=== PATIENT | female | born 1995 | race Caucasian/White ===

== ENCOUNTER 2017-03-16 19:10 | Inpatient (IN) ==
[2017-03-16] MEDS ORDERED: COMPAZINE IV ONE (19:53)
[2017-03-16 20:06] LABS: BASO% 0.2 % (0.0-0.8); EOS# 0.01 X1000 (0.0-0.7); EOS% 0.1 % (0.0-10.0); HEMATOCRIT 40.7 % (37.0-47.0); HEMOGLOBIN 15.1 g/dL (12.0-16.0); IMM GRAN# 0.02 X1000 (0.0-0.04); IMM GRAN% 0.2 % (0.0-0.5); LYMPH# 1.95 X1000 (1.2-3.4); LYMPH% 21.8 % (20.5-51.1); MANUAL DIFF NEEDED? NO; MCH 30.8 PG (27-31); MCHC 37.1 g/dL (33-37); MCV 83.1 FL (81-99); MONO# 0.87 X1000 (0.11-0.59); MONO% 9.7 % (1.7-9.3); MPV 9.1 FL (7.4-10.4); PLT 489 X1000 (130-400)
[2017-03-16] MEDS ORDERED: POTASSIUM CHLORIDE 20% LIQUID PO ONE (21:15)
[2017-03-16 21:16] LABS: AGAP 14; ALBUMIN 4.1 g/dL (3.5-5.0); ALKALINE PHOSPHATASE 63 U/L (32-104); BUN 9 mg/dL (8-22); CALCIUM 9.3 mg/dL (8.8-10.2); CHLORIDE 74 mmol/L (98-107); COSMO 259; GOT 23 U/L (10-30); GPT 10 U/L (10-36); MAGNESIUM 2.2 mg/dL (1.5-2.7); SODIUM 129 mmol/L (136-145); TCO2 41 mmol/L (25-35); TOTAL BILIRUBIN 1.27 mg/dL (0.20-1.00); TOTAL PROTEIN 6.5 g/dL (6.3-8.3)
[2017-03-16] MEDS ORDERED: NS + KCL 40 MEQ 1,000 ML IV ONE (21:17)
[2017-03-16 21:18] LABS: POTASSIUM < 1.5 mmol/L (3.5-5.1)
--- NOTE | 2017-03-16 21:28 | PROVIDER DOCUMENTATION ---
This chart was entered by Tamara Shearer Scribe, acting as scribe for Carlton Barrios MD. HPI-Syncope/Dizziness - General Chief Complaint: Near Syncope Stated Complaint: weakness Time Seen by Provider: 03/16/17 19:40 Source: patient Allergies/Adverse Reactions: Patient Allergies Allergy/AdvReac Type Severity Reaction Status Date / Time Penicillins AdvReac HIVES Verified 03/16/17 19:51 - History of Present Illness-Syncope/Dizzy Nature of Presenting Problem: 21 Y/O F presents to ED with near syncope. Pt states weakness to general body began this afternoon and states her hands and feet curled up and she had chest tightness and SOB, throat closing, and rapid heart beat. Prior Episodes: reports: no prior history Onset/Duration: reports: this afternoon Timing: reports: still present Position/Activity at time of episode: reports: standing Symptoms prior to episode: reports: rapid heart beat, other (pi0grkbfj/ tingling , SOB, throat closing) Loss of Consciousness: no loss of consciousness Location of injury. (If syncope resulted in an injury.): reports: none Current Symptoms: reports: nausea Review of Systems - Adult - REVIEW OF SYSTEMS - ADULT Constitutional: denies: chills, fever Eyes: reports: no symptoms reported Ears, Nose, Mouth & Throat: reports: throat pain Cardiovascular: reports: irregular heart rate Respiratory: reports: shortness of breath. denies: cough Gastrointestinal: reports: nausea. denies: abdominal pain, diarrhea, vomiting Genitourinary: reports: no symptoms reported Musculoskeletal: reports: no symptoms reported Integumentary: reports: no symptoms reported Neurological: reports: no symptoms reported Psychiatric: reports: no symptoms reported Endocrine: reports: no symptoms reported Hematologic/Lymphatic: reports: no symptoms reported Allergic/Immunologic: reports: no symptoms reported All Other Systems: Reviewed and Negative Past History - Adult - PAST MEDICAL HISTORY-ADULT Review of Records: reports: Old Records Reviewed, Nursing Assessment Review, Medications Reviewed, Social history reviewed & non-contributory. - SOCIAL HISTORY Smoking: non-smoker Alcohol Use Frequency: every day Number of drinks per typical drinking period:: 5-10 drinks Physical Exam-General - PHYSICAL EXAM-ADULT Initial Vital Signs Reviewed: Yes - CONSTITUTIONAL General Appearance: appears well, alert, no apparent distress - EYES Eyes: PERRL/EOMI, pink conjunctivae - HEAD, EARS, NOSE, MOUTH & THROAT HENMT: normocephalic/atraumatic, moist mucous membranes, normal ENT inspection, TMs normal, pharynx normal - NECK Neck: non-tender, full range of motion, supple, normal inspection - RESPIRATORY Respiratory: chest non-tender, lungs clear, normal breath sounds - CARDIOVASCULAR Cardiovascular: normal peripheral pulses, regular rate, rhythm - GASTROINTESTINAL (ABDOMEN) Abdominal Exam: normal bowel sounds, non tender, soft - LYMPHATIC Lymphatic: no adenopathy - MUSCULOSKELETAL Back Exam: normal inspection, no CVA tenderness, no vertebral tenderness Extremity: normal range of motion, non-tender, normal gait, normal inspection - SKIN Integumentary: normal color, normal turgor, warm/dry - NEUROLOGIC 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, no motor/sensory deficits - PSYCHIATRIC Psych/Mental Status: normal mood/affect, normal thought content, normal thought process, oriented x 3 Progress - PLAN OF CARE/RESULTS Progress/Plan/Lab Results: Vital Signs - 8 hr 03/16/17 19:13 03/16/17 19:39 Temperature 98.1 F 98.1 F Pulse Rate 82 88 Respiratory Rate 16 21 Blood Pressure 84/46 98/49 O2 Sat by Pulse Oximetry 100 100 Laboratory Results - last 24 hr 03/16/17 03/16/17 19:30 19:30 WBC 8.96 RBC 4.90 Hgb 15.1 Hct 40.7 MCV 83.1 MCH 30.8 MCHC 37.1 H RDW Std Deviation 11.9 Plt Count 489 H MPV 9.1 Immature Gran % (Auto) 0.2 Neut % (Auto) 68.0 Lymph % (Auto) 21.8 Platte % (Auto) 9.7 H Eos % (Auto) 0.1 Baso % (Auto) 0.2 Immature Gran # (Auto) 0.02 Neut # (Auto) 6.09 Lymph # (Auto) 1.95 Platte # (Auto) 0.87 H Eos # (Auto) 0.01 Baso # (Auto) 0.02 Sodium 129 L Potassium < 1.5 L* Chloride 74 L Carbon Dioxide 41 H Anion Gap 14 BUN 9 Creatinine 0.9 BUN/Creatinine Ratio 10 Glucose 123 H Calculated Osmolality 259 Calcium 9.3 Magnesium 2.2 Total Bilirubin 1.27 H AST 23 ALT 10 Alkaline Phosphatase 63 Total Protein 6.5 Albumin 4.1 Globulin 2.4 Albumin/Globulin Ratio 1.7 Orders Category Date Time Status CBC WITH ELECTRONIC DIFF [HEME] Stat Lab 03/16/17 19:30 Completed CMP [COMPREHENSIVE METABOLIC PANEL] [CHEM] Stat Lab 03/16/17 19:30 Completed MAGNESIUM [CHEM] Stat Lab 03/16/17 19:30 Completed Ns + KCl 40 Meq 1,000 ml Med 03/16/17 21:17 Active IV 250 mls/hr Potassium Chloride 20% Liquid Med 03/16/17 21:15 Discontinued 40 meq PO NOW ONE Prochlorperazine [Compazine] Med 03/16/17 19:53 Discontinued 10 mg IV NOW ONE Result Diagrams: 03/16/17 19:30 03/16/17 19:30 - EKG 1 Time of EKG reading by physician:: 19:30 EKG Read and Signed by:: Carlton Barrios EKG Interpretation (*Must complete 3 of following elements*): Normal Rate: 78 Rhythm: NSR Comments: Abnormal ECG, Nonspecific intraventricular block Departure - Departure Time of Disposition Decision: 21:27 DIAGNOSIS: Hypokalemia Disposition: ADMITTED INPATIENT 09 Certified Medical Emergency: Emergent Condition: Fair - Critical Care Note This patient required my direct personal management.: No This chart was documented by the indicated scribe, (Tamara Shearer Scribe) and accurately reflects the services I performed and decisions made by me, Carlton Barrios MD, as attested by the provider's signature.
[2017-03-16] MEDS ORDERED: NS 500 ML IV ONE (22:49)
[2017-03-17] MEDS ORDERED: ZOFRAN IV PRN (00:47)
[2017-03-17] MEDS ORDERED: KLOR-CON PO ONE ×3 (00:56→16:23)
--- NOTE | 2017-03-17 05:50 | EKG Report ---
Test Performed on : 03/16/2017 7:30:20 PM Test Reason : No Order in Array Bridge Blood Pressure : / mmHG Vent. Rate : 078 BPM Atrial Rate : 078 BPM P-R Int : 156 ms QRS Dur : 126 ms QT Int : 490 ms P-R-T Axes : 073 078 068 degrees QTc Int : 558 ms Normal sinus rhythm. Nonspecific intraventricular block Abnormal ECG No previous ECGs available Unconfirmed Result
--- NOTE | 2017-03-17 06:04 | HISTORY AND PHYSICAL ---
PRIMARY CARE PHYSICIAN: None. CHIEF COMPLAINT: Muscle cramping, body feeling weak. HISTORY OF PRESENTING ILLNESS: A 21-year-old female without any significant past medical history, had presented to the emergency department, complained of having weakness and body cramps for several days. She states that she was taking some ccil-rtr-qzqwsjy diuretics to help with reducing some of her swelling she was having. She was evaluated in the ER, and she was noted to have a very low potassium. Due to her presenting symptoms, it was thought that she would need hospitalization for further management. At the time of my examination, she denied any headaches, visual changes, fevers, chills, chest pain, hemoptysis, or any weight changes. Just complained of body cramping and feeling weak. PAST MEDICAL HISTORY: None. PAST SURGICAL HISTORY: None. ALLERGIES: Penicillin. CURRENT MEDICATIONS: As listed in the MAR. SOCIAL HISTORY: She denies any history of smoking. Admits to alcohol use daily. Denies any illicit drug use. FAMILY HISTORY: No history of coronary artery disease. REVIEW OF SYSTEMS: Twelve point review of systems is as listed in the HPI. Other systems negative. PHYSICAL EXAMINATION: GENERAL: Cooperative, friendly female. She is resting comfortably now. VITAL SIGNS: Temperature 97.6 degrees, pulse 74, respirations 17, blood pressure 100/66. HEENT: Atraumatic, normocephalic. Extraocular movements intact. PERRLA. NECK: No masses. CHEST: Clear to auscultation. CARDIOVASCULAR: Regular rate and rhythm. ABDOMEN: Soft, nontender. Positive bowel sounds. EXTREMITIES: No edema. NEUROLOGIC: She is awake, alert, oriented x3. GENITOURINARY: No bladder distention. SKIN: Warm. LABORATORIES AND STUDIES: WBC 8.96, hemoglobin 15.1, hematocrit 40.7, platelets 489,000. Sodium 129, potassium 1.5, chloride 74, CO2 was 41, BUN is 9, creatinine 0.9, glucose is 123. ASSESSMENT: This is a 21-year-old female without any significant past medical history. Had presented to the emergency department with a complaint of weakness and body cramping for several days. She has apparently been taking some vshp-ywe-vocaykp diuretic agents. She was evaluated in the ER. She was found to be severely hypokalemic. She will need hospitalization for further management. 1. Severe hypokalemia. 2. Muscle weakness and cramps. PLAN: 1. We will admit patient to medical floor with telemetry. 2. We will continue with IV fluids, and also potassium replacement. 3. Give patient pain control as needed. 4. We will continue to follow and reassess. cc: Raimundo Kwan MD
[2017-03-17 07:02] LABS: MANUAL DIFF NEEDED? NO
[2017-03-17 07:52] LABS: AGAP 10; BUN 8 mg/dL (8-22); CALCIUM 8.6 mg/dL (8.8-10.2); CHLORIDE 89 mmol/L (98-107); COSMO 271; SODIUM 137 mmol/L (136-145); TCO2 38 mmol/L (25-35)
[2017-03-17 07:57] LABS: POTASSIUM 2.5 mmol/L (3.5-5.1)
[2017-03-17 08:15] LABS: BASO% 0.4 % (0.0-0.8); EOS# 0.05 X1000 (0.0-0.7); EOS% 0.9 % (0.0-10.0); HEMATOCRIT 32.3 % (37.0-47.0); HEMOGLOBIN 11.7 g/dL (12.0-16.0); LYMPH# 2.47 X1000 (1.2-3.4); LYMPH% 46.3 % (20.5-51.1); MCH 30.7 PG (27-31); MCHC 36.2 g/dL (33-37); MCV 84.8 FL (81-99); MONO# 0.52 X1000 (0.11-0.59); MONO% 9.7 % (1.7-9.3); MPV 9.6 FL (7.4-10.4); NEUT% 42.7 % (42.2-75.2); PLT 239 X1000 (130-400); RBC 3.81 XMIL (4.2-5.4)
--- NOTE | 2017-03-17 09:27 | EKG Report ---
Test Performed on : 03/17/2017 08:19:40 AM Test Reason : low K+ Blood Pressure : / mmHG Vent. Rate : 053 BPM Atrial Rate : 053 BPM P-R Int : 150 ms QRS Dur : 114 ms QT Int : 518 ms P-R-T Axes : 048 072 060 degrees QTc Int : 486 ms Sinus bradycardia. Prolonged QT Abnormal ECG When compared with ECG of 16-MAR-2017 19:30, QT has shortened Confirmed by Sam CALLAHAN, Salvador Mccormack ([id number]) on 03/18/2017 10:01:35 AM
[2017-03-17] MEDS: NS + KCL 40 MEQ 1,000 ML IV SCH ×2 (10:24→17:11)
--- NOTE | 2017-03-17 13:29 | PROGRESS NOTE ---
DATE: 03/17/2017 SUBJECTIVE: This patient states that she is feeling much better. She is not complaining today of lower extremity cramping or pain. She still feels sleepy. She denies nausea, vomiting, diarrhea, constipation. I had a conversation with this patient, and she states that she has been drinking every day and also she has been taking Diurex because she wants to be skinnier. Apparently she also was prescribed a couple weeks ago with potassium and magnesium pill that she has been taking on and off. She states that all these medications were bought and prescribed in [place], [place]. OBJECTIVE: Vital signs: temperature 98, pulse 57, respiratory rate 20, blood pressure 84/43, oxygen saturation 99 on room air. HEENT: Head normocephalic. No trauma . PERRLA. Neck: Supple. No JVD. No masses. Central trachea. Chest: Clear to auscultation. No wheezing or rales. Abdomen: Soft, nontender, nondistended. No hepatosplenomegaly. Extremities: No edema. No clubbing. No cyanosis. Neurological examination: The patient is alert and oriented x3. No focal neurological deficits. LABORATORY: WBC 5.3, hemoglobin 11.7, hematocrit 32.3, platelets 239, sodium 137, potassium 2.5, chloride 89, bicarbonate 38, BUN 8, creatinine 0.8, glucose 83, calcium 8.6. ASSESSMENT AND PLAN: 1. Severe hypokalemia, is getting better but still the potassium is low. She was admitted with less than 1.5 of potassium, and today the potassium in the serum is 2.5. We will replace this again. We have stopped all kind of medications that she was on before. 2. Hyponatremia, resolved. 3. Dehydration. This patient looks more hydrated today. 4. Hypotension. This patient states that her systolic blood pressure baseline is around 80s-90s, so apparently this blood pressure for her is normal. 5. Muscle weakness and cramps. She still feels a little bit weak, but she is not complaining about cramps. 6. Deep vein thrombosis prophylaxis. I will put this patient on Lovenox. cc: Jagdeep Redd MD
--- NOTE | 2017-03-17 14:09 | PROGRESS NOTE ---
DATE: 03/17/2017 ADDENDUM REPORT: I had a conversation with this patient's dad, and he states that this patient was recently discharged 1 week ago from the hospital in [place], secondary to eating disorder and electrolyte imbalance. Apparently, also she was hospitalized when she was 16 years old secondary to eating disorder. I explained to him that we do not have psychiatry on board to take care of this kind of patient, but I highly recommended to look for an outpatient psychiatry evaluation. DIAGNOSIS: So, I will add the following diagnosis: Eating disorder, I am not quite sure if this is anorexia nervosa or bulimia, this patient is not giving me too much information. cc: Jagdeep Redd MD
[2017-03-17 15:42] LABS: MAGNESIUM 2.1 mg/dL (1.5-2.7); POTASSIUM 2.5 mmol/L (3.5-5.1)
[2017-03-18] MEDS: NS + KCL 40 MEQ 1,000 ML IV SCH ×2 (01:08→09:08)
[2017-03-18 07:01] LABS: MANUAL DIFF NEEDED? NO
[2017-03-18 07:19] LABS: BASO% 0.8 % (0.0-0.8); EOS# 0.22 X1000 (0.0-0.7); EOS% 4.2 % (0.0-10.0); HEMATOCRIT 35.3 % (37.0-47.0); HEMOGLOBIN 12.4 g/dL (12.0-16.0); LYMPH# 2.95 X1000 (1.2-3.4); LYMPH% 56.8 % (20.5-51.1); MCH 30.8 PG (27-31); MCHC 35.1 g/dL (33-37); MCV 87.8 FL (81-99); MONO# 0.31 X1000 (0.11-0.59); MPV 9.2 FL (7.4-10.4); NEUT% 32.2 % (42.2-75.2); PLT 257 X1000 (130-400); RBC 4.02 XMIL (4.2-5.4)
[2017-03-18 07:36] LABS: AGAP 11; BUN 4 mg/dL (8-22); CALCIUM 8.8 mg/dL (8.8-10.2); CHLORIDE 99 mmol/L (98-107); COSMO 276; MAGNESIUM 1.9 mg/dL (1.5-2.7); SODIUM 140 mmol/L (136-145); TCO2 30 mmol/L (25-35)
[2017-03-18] MEDS ORDERED: LOVENOX SUBQ SCH (09:00)
[2017-03-18] MEDS ORDERED: KLOR-CON PO ONE (09:28)
[2017-03-18 14:23] VITALS: BP 87/52
[2017-03-18 15:34] LABS: HEMOGLOBIN 12.2 g/dL (12.0-16.0); MCH 30.7 PG (27-31); MCHC 34.9 g/dL (33-37); MCV 87.9 FL (81-99); MPV 8.8 FL (7.4-10.4); RBC 3.98 XMIL (4.2-5.4)
--- NOTE | 2017-03-18 15:40 | DISCHARGE SUMMARY ---
ADMISSION DATE: 03/16/2017 DISCHARGE DATE: 03/18/2017 DISCHARGE DIAGNOSES: 1. Severe hypokalemia, potassium less than 1.5 on admit, greater than 3.0 on discharge. 2. Hyponatremia, 129 admit, 140 discharge. 3. Mildly elevated bilirubin. 4. Dehydration, resolved. 5. Hypotension. Patient notes that her blood pressures are normally in the 80s to 90s at home. She is having 0 symptoms of this. She is able to ambulate the jenkins. She is having no lightheadedness falling, no dizziness, no chest pain. 6. Muscle cramps likely secondary to her hypokalemia has resolved. 7. Apparent eating disorder per family. CONSULTATIONS: None. PROCEDURES: None. BRIEF HOSPITAL COURSE: Patient 21-year-old female was admitted as noted on the HPI. Treated in usual fashion. Placed on high doses of potassium. She had a very good steady improvement in her potassium. On discharge it was essentially back to normal greater than 3.0. She was able to ambulate the jenkins without any difficulty. She was able to eat breakfast and lunch with no changes. The patient was asking to go home. DISPOSITION: Patient will be discharged home. She is currently on home medications for her potassium as well as her magnesium. These have been restarted. Patient's primary care physician is in [place]. She is here only visiting her father. TIME SPENT: Thirty-five minutes was spent in discharge planning and instructions. DISCHARGE INSTRUCTIONS: Discussed with patient restart her home medications. Discussed with her that she needs to follow up with her primary physician when she arrives back home. Patient will need to continue to eat a regular diet and not avoid salt or potassium containing foods. Patient states that she understands. cc: Moris Tovar MD
[2017-03-18 16:04] LABS: AGAP 9; ALBUMIN 3.5 g/dL (3.5-5.0); ALKALINE PHOSPHATASE 54 U/L (32-104); BUN 4 mg/dL (8-22); CALCIUM 8.6 mg/dL (8.8-10.2); CHLORIDE 101 mmol/L (98-107); COSMO 277; GOT 27 U/L (10-30); GPT 13 U/L (10-36); POTASSIUM 3.3 mmol/L (3.5-5.1); SODIUM 140 mmol/L (136-145); TCO2 30 mmol/L (25-35); TOTAL PROTEIN 5.9 g/dL (6.3-8.3)
[2017-03-18] MEDS ORDERED: BUSPAR PO SCH (21:00)
[2017-03-19] MEDS ORDERED: PATIENT'S OWN MED PO SCH (09:00)
[2017-03-19] MEDS ORDERED: MAGNESIUM GLUCONATE PO SCH (09:00)
[2017-03-19] MEDS ORDERED: MICRO-K PO SCH (09:00)
== END 2017-03-18 17:08 | disposition home or self-care (01) ==
LOC: ED 19:10 → 3N 21:45 → SUATTDRO 21:45
PROVIDERS: ATTEND Family Medicine

== ENCOUNTER 2017-04-06 09:44 | Inpatient (IN) ==
--- NOTE | 2017-04-06 10:11 | PROVIDER DOCUMENTATION ---
HPI-General Adult - General Chief Complaint: Abnormal Lab[s] Stated Complaint: DIARRHEA,LOW POTASSIUM,PALPITATIONS Time Seen by Provider: 04/06/17 09:57 Source: patient Allergies/Adverse Reactions: Patient Allergies Allergy/AdvReac Type Severity Reaction Status Date / Time Penicillins AdvReac HIVES Verified 04/06/17 10:29 Home Medications: Home Medication List Medication Instructions Recorded Confirmed Last Taken Type NK [No Home Medications] 04/06/17 04/06/17 Unknown History - History of Present Illness -Gen Adult Nature of Presenting Problems: 21 yo female presents to the emergency room with a chief complaint of nausea and diarrhea x one month. Reports 4th visit to the emergency room with same symptoms. Reports low potassium with each visit. Reports seen at a local and had blood drawn and did not want to wait on the results. Reports took last potassium pill today. Gives Hx of anxiety with palpitations. reports mild burning with urination. Denies fever, chills, chest pain, shortness of breath or abdominal pain. Onset/Duration: reports: other (1 month) Timing: reports: still present Associated Symptoms: reports: anxiety, nausea. denies: fever/chills, shortness of breath Similar Symptoms Previously?: Yes Recently seen or treated by another doctor?: Yes Review of Systems - Adult - REVIEW OF SYSTEMS - ADULT Constitutional: denies: chills, fever Eyes: reports: no symptoms reported Ears, Nose, Mouth & Throat: reports: no symptoms reported Cardiovascular: reports: no symptoms reported Respiratory: reports: no symptoms reported Gastrointestinal: reports: diarrhea, nausea Genitourinary: reports: no symptoms reported Musculoskeletal: reports: no symptoms reported Integumentary: reports: no symptoms reported Neurological: reports: no symptoms reported Psychiatric: reports: no symptoms reported Endocrine: reports: no symptoms reported Hematologic/Lymphatic: reports: no symptoms reported Allergic/Immunologic: reports: no symptoms reported All Other Systems: Reviewed and Negative Past History - Adult - PAST MEDICAL HISTORY-ADULT Review of Records: reports: Nursing Assessment Review, Medications Reviewed Major Childhood Illnesses: reports: denies history Cardiovascular: reports: denies history Respiratory: reports: asthma Gastrointestinal: reports: denies history Obstetrical/Gynecological: reports: denies history Genitourinary: reports: denies history Musculoskeletal: reports: denies history Neurological: reports: denies history Psychiatric: reports: anxiety, other (eating disorder) Endocrine/Immune: reports: denies history Other Conditions: reports: denies history - IMMUNIZATION STATUS Childhood Immunizations: See Nurse Assessment Flu Vaccine: See Nurse Assessment - FAMILY HISTORY Family History: reviewed, not pertinent - SOCIAL HISTORY Smoking: denies Substance Use: alcohol Alcohol Use Frequency: occasionally Physical Exam-General - PHYSICAL EXAM-ADULT Initial Vital Signs Reviewed: Yes - CONSTITUTIONAL General Appearance: appears well, alert, no apparent distress - EYES Eyes: PERRL/EOMI, pink conjunctivae - HEAD, EARS, NOSE, MOUTH & THROAT HENMT: normocephalic/atraumatic, moist mucous membranes, normal ENT inspection, TMs normal, pharynx normal - NECK Neck: full range of motion, supple - RESPIRATORY Respiratory: lungs clear, normal breath sounds - CARDIOVASCULAR Cardiovascular: normal peripheral pulses, regular rate, rhythm - GASTROINTESTINAL (ABDOMEN) Abdominal Exam: normal bowel sounds, non tender, soft. negative: tenderness - MUSCULOSKELETAL Back Exam: normal inspection, no vertebral tenderness Extremity: normal range of motion, normal gait, normal capillary refill - SKIN Integumentary: normal color, normal turgor, warm/dry - NEUROLOGIC Neurologic: grossly normal, no motor/sensory deficits - PSYCHIATRIC Psych/Mental Status: normal mood/affect, oriented x 3 Progress - PLAN OF CARE/RESULTS Progress/Plan/Lab Results: Vital Signs - 8 hr 04/06/17 09:51 Temperature 98.3 F Pulse Rate 58 L Respiratory Rate 16 Blood Pressure 117/72 O2 Sat by Pulse Oximetry 100 Orders Category Date Time Status ED: Urine Bedside ORDERED Care 04/06/17 10:06 Ordered CBC WITH DIFF [HEME] Stat Lab 04/06/17 10:05 Uncollected CMP [COMPREHENSIVE METABOLIC PANEL] [CHEM] Stat Lab 04/06/17 10:05 Uncollected URINALYSIS [URINALYSIS] Stat Lab 04/06/17 10:05 Uncollected [id number] Discussed patient's labs with Dr. Garzon, verbalized orders for IV NACL with 20 meq Potassium and Potassium [address] Garzon verbalized to admit patient to hospital for evaluation of low potassium. Result Diagrams: 04/06/17 10:18 04/06/17 10:18 - CONSULTS/PCP/HOSPITALIST Notification #1 *Consult/PCP/Hospitalist*: Sukumar Time Discussed: 11:15 Consult Disposition: other (awaiting Hospitalist to return call) #2 Consult: Quensa Time Discussed: 12:15 Consult Disposition: Will see in ED, Admit Departure - Departure Time of Disposition Decision: 12:05 DIAGNOSIS: Hypokalemia UTI (urinary tract infection) Qualifiers: Encounter type: initial encounter Disposition: ADMITTED INPATIENT 09 Certified Medical Emergency: Emergent Condition: Stable - Critical Care Note This patient required my direct & personal management of CC.: No Attestation - Physician/ LUCITA Attestation Patient care was provided by Advanced Practice Provider:: Yes Advanced Practice Provider:: Prabha Mcdonald Advanced Practice Provider documentation review:: The Mid-level provider documentation, treatment plan and medical decision making was reviewed by the physician who agrees with all treatment and medical decision making by the MLP. The physician spent face to face time with patient:: Yes Advanced Practice Provider documentation review:: The physician spent face to face time with this patient and agrees with all MLP documentation, treatment, and medical decision making by the MLP. See provider notes for further information.
[2017-04-06 10:26] LABS: MANUAL DIFF NEEDED? NO; URINE MICRO REVIEW NEEDED? NO; URINE SOURCE CLEAN CATCH
[2017-04-06 10:38] LABS: BASO% 0.8 % (0.0-0.8); EOS# 0.03 X1000 (0.0-0.7); EOS% 0.8 % (0.0-10.0); HEMATOCRIT 44.8 % (37.0-47.0); HEMOGLOBIN 15.8 g/dL (12.0-16.0); LYMPH# 1.33 X1000 (1.2-3.4); LYMPH% 35.5 % (20.5-51.1); MCH 30.3 PG (27-31); MCHC 35.3 g/dL (33-37); MCV 85.8 FL (81-99); MONO# 0.43 X1000 (0.11-0.59); MONO% 11.5 % (1.7-9.3); MPV 8.6 FL (7.4-10.4); NEUT% 51.4 % (42.2-75.2); PLT 345 X1000 (130-400); RBC 5.22 XMIL (4.2-5.4)
[2017-04-06 10:39] LABS: UR EPITHELIAL CELLS >10 /HPF (<10); URINE BACTERIA 1+ /HPF; URINE RBC <10 /HPF (<10)
[2017-04-06 10:51] LABS: BILIRUBIN URINE MODERATE (NEGATIVE); BLOOD URINE NEGATIVE (NEGATIVE); COLOR YELLOW; GLUCOSE URINE NEGATIVE (NEGATIVE); LEUKOCYTES URINE NEGATIVE (NEGATIVE); NITRITE URINE POSITIVE (NEGATIVE); PH URINE 8.5; PROTEIN URINE 200 mg/dL (NEGATIVE); SP GRAVITY URINE 1.027; TURBIDITY URINE HAZY (CLEAR); UROBILINOGEN URINE 6 mg/dL (NORMAL)
[2017-04-06 10:53] LABS: URINE WBC <10 /HPF (<10)
[2017-04-06 10:58] LABS: AGAP 15; ALBUMIN 4.6 g/dL (3.5-5.0); ALKALINE PHOSPHATASE 79 U/L (32-104); BUN 7 mg/dL (8-22); CALCIUM 9.7 mg/dL (8.8-10.2); CHLORIDE 79 mmol/L (98-107); COSMO 258; GOT 33 U/L (10-30); GPT 16 U/L (10-36); POTASSIUM 2.1 mmol/L (3.5-5.1); SODIUM 130 mmol/L (136-145); TCO2 36 mmol/L (25-35); TOTAL BILIRUBIN 1.03 mg/dL (0.20-1.00); TOTAL PROTEIN 7.4 g/dL (6.3-8.3)
[2017-04-06] MEDS ORDERED: NS 1,000 ML IV ONE (11:07)
[2017-04-06] MEDS ORDERED: NS + KCL 20 MEQ 1,000 ML IV SCH ×2 (11:09→19:17)
[2017-04-06] MEDS ORDERED: KLOR-CON PO ONE (11:29)
[2017-04-06] MEDS ORDERED: MAGNESIUM SULFATE 2 GM/S.W.I. 2 GM/50 ML IVPB IV ONE (12:03)
[2017-04-06 12:34] LABS: UR CHLORIDE 23 mmoll; UR SODIUM 14 mmoll
[2017-04-06] MEDS ORDERED: XANAX PO ONE (13:09)
--- NOTE | 2017-04-06 14:09 | HISTORY AND PHYSICAL ---
CHIEF COMPLAINT: Persistent diarrhea, abdominal cramping and back spasms. HISTORY OF PRESENT ILLNESS: Mrs. Lynn is a 21-year-old, female, who was recently discharged from our service at [facility] on 03/18/2017. At that time, she was diagnosed with hypokalemia, hyponatremia and muscle cramps. There is also a question of eating disorder per her family although they are not here today. This is on previous H and P. She comes today with reports of 3-4 bowel movements a day. She reports liquid stool and this is associated with abdominal pain and cramping. She has also had a few episodes of vomiting and she also has dysuria. She denies any fevers or chills. The patient also reports some lower back pain. She denies any abuse of laxatives or diuretics, in fact she states she has taken some Imodium for diarrhea relief. When she got to the ER today she was noted to be profoundly hypokalemic with hyponatremia and hypochloremia with associated contraction alkalosis. Urinalysis did reveal positive nitrites, moderate bilirubin and 1+ bacteria but there was also greater than 10 epi cells. Her vital signs are stable. She is currently receiving electrolyte repletion and IV fluids and she is going to be admitted for further treatment and evaluation. PAST MEDICAL HISTORY: 1. Anxiety. 2. Question of eating disorder. SURGICAL HISTORY: None. SOCIAL HISTORY: Patient reports drinking 3 beers a day. She denies any drug use. She does not smoke. She is currently living with her father here in [place] although she has recently come from [place]. FAMILY HISTORY: Noncontributory. ALLERGIES: To penicillin. MEDICATIONS: The patient is reportedly is supposed to be on BuSpar but she does like it for anxiety and she also reports being on Xanax 0.25 mg as needed for anxiety but has not had this medication recently. REVIEW OF SYSTEMS: Fourteen-point review of systems obtained and found to be negative with the exception of the HPI. PHYSICAL EXAMINATION: VITAL SIGNS: Blood pressure is 92/61, heart rate 59, respiratory rate 18, O2 saturation 98% on room air. Temperature is 98.7 degrees. GENERAL: This is an underweight bordering on malnourished appearing 21-year-old, female, lying in the hospital bed in no acute distress. NEUROLOGIC: She is awake, alert, oriented. She follows commands without focal deficits. HEENT: Head atraumatic and normocephalic. Her pupils are equal, round, and reactive to light. Oral mucosa is moist. Trachea is midline. No JVD or carotid bruits. CHEST: Clear to auscultation bilaterally. CV: Regular rate and rhythm. S1, S2. There were no murmurs, gallops, clicks or rubs. GI: Is soft, nondistended. She does have some epigastric tenderness to palpation. Bowel sounds are active. EXTREMITIES: Without edema, clubbing or cyanosis. Pulses are palpable bilaterally. DIAGNOSTIC DATA: WBC 3.75, hemoglobin 15.8, hematocrit 44.8, platelet count 345,000. Sodium 130, potassium 2.1, chloride 79, CO2 36, anion gap 15. BUN 7, creatinine 0.8, glucose 90. Total bilirubin 1.03. AST 33, albumin is 4.6. TSH 0.96, free T4 1.47. UA shows urinary tract infection and test is pending. ASSESSMENT/PLAN: 1. Profound electrolyte abnormalities including hypokalemia, hypochloremia and hyponatremia: This is all secondary to diarrhea. We are replacing these electrolytes and we will recheck another round of electrolytes at 4 today. We will also check a current phosphorus level. For hyponatremia based on urine electrolytes, it is hypovolemic and we are continuing with isotonic fluid administration. 2. Persistent diarrhea: Stool studies have been ordered and we are going to check a CT of the abdomen and pelvis. 3. Elevated liver function tests: CT of the abdomen and pelvis have been ordered and we are also going to check a hepatitis profile. 4. Severe protein calorie malnutrition: Patient is underweight. BMI is 18. We will continue with regular diet. We also need to ascertain if she truly does have an eating disorder or is abusing laxatives and/or diuretics. She may need a behavioral health consult. 5. DVT prophylaxis. Patient is ambulatory. 6. UTI. We will start Rocephin. Further recommendations to follow. Dictated by DO Tovar for Tristan Martin MD cc: DO Tovar MD
--- NOTE | 2017-04-06 15:27 | Diag Imaging Result Doc PS360 ---
ABDOMEN/PELVIS W/CONTRAST - 04/06/2017 INDICATION: persistent diarrhea, abd pain/cramping COMPARISON: None FINDINGS: The lung bases are clear and the heart size is normal. There are numerous gallstones in the gallbladder. No gallbladder distention, wall thickening or free fluid. The liver, pancreas, spleen, adrenals, and kidneys are normal. No bowel obstruction or inflammation. Urinary bladder, uterus, and rectum are normal. Bony structures are intact. IMPRESSION: Gallstones in the gallbladder. Otherwise no acute disease. Electronically signed by Roland Harris 04/06/2017 3:25 PM
--- NOTE | 2017-04-06 17:15 | ED EKG INTERP ---
This chart was entered by Anjelica Casarez Scribe, acting as scribe for Prabha Mcdonald CRNP. EKG Interpretation - EKG Time of EKG reading by physician:: 10:44 EKG Read and Signed by:: Soha Garzon EKG Interpretation (*Must complete 3 of following elements*): Normal (sinus bradycardia, but otherwise normal) Rate: 49 Rhythm: sinus bradycardia [place]: normal QRS: normal ND Interval: normal ST Wave: normal <Prabha Mcdonald - Last Filed: 04/06/17 11:07> - EKG Time of EKG reading by physician:: 10:44 <Soha Garzon - Last Filed: 04/06/17 16:52> This chart was documented by the indicated scribe, (Anjelica Casarez Scribe) and accurately reflects the services I performed and decisions made by Harry valero Jacqueline Kay, CRNP, as attested by the provider's signature.
[2017-04-06 17:42] LABS: AGAP 17; BUN 5 mg/dL (8-22); CALCIUM 9.2 mg/dL (8.8-10.2); CHLORIDE 84 mmol/L (98-107); COSMO 263; POTASSIUM 3.1 mmol/L (3.5-5.1); SODIUM 133 mmol/L (136-145); TCO2 32 mmol/L (25-35)
[2017-04-06 20:45] LABS: UR AMPHETAMINES QUAL NONE DETECTED (NONE DETECT)
[2017-04-06 20:46] LABS: UR BARBITUATES QUAL NONE DETECTED (NONE DETECT); UR BENZODIAZEPIN QUAL PRESUMPTIVE POSITIVE (NONE DETECT); UR CANNABINOIDS QUAL NONE DETECTED (NONE DETECT); UR COCAINE QUAL NONE DETECTED (NONE DETECT); UR METHADONE QUAL NONE DETECTED (NONE DETECT); UR OPIATES QUAL NONE DETECTED (NONE DETECT); UR OXYCODONE QUAL NONE DETECTED (NONE DETECT); UR PCP QUAL NONE DETECTED (NONE DETECT)
[2017-04-06] MEDS: NS + KCL 20 MEQ 1,000 ML IV SCH (20:50)
--- NOTE | 2017-04-07 05:14 | EKG Report ---
Test Performed on : 04/07/2017 02:33:39 AM Test Reason : Bradycardia Blood Pressure : / mmHG Vent. Rate : 042 BPM Atrial Rate : 042 BPM P-R Int : 152 ms QRS Dur : 098 ms QT Int : 516 ms P-R-T Axes : 072 076 061 degrees QTc Int : 430 ms Marked sinus bradycardia. Junctional ST depression, probably abnormal Abnormal ECG When compared with ECG of 24-MAR-2017 18:43, Vent. rate has decreased BY 23 BPM QT has shortened Confirmed by Aaron CALLAHAN, Chon Mccormack ([id number]) on 04/07/2017 3:30:13 PM
[2017-04-07 05:21] LABS: HEMATOCRIT 35.6 % (37.0-47.0); HEMOGLOBIN 12.5 g/dL (12.0-16.0); MCH 31.2 PG (27-31); MCHC 35.1 g/dL (33-37); MCV 88.8 FL (81-99); MPV 8.7 FL (7.4-10.4); RBC 4.01 XMIL (4.2-5.4)
[2017-04-07 05:52] LABS: POTASSIUM 2.5 mmol/L (3.5-5.1)
[2017-04-07 05:53] LABS: AGAP 12; BUN 6 mg/dL (8-22); CALCIUM 8.5 mg/dL (8.8-10.2); CHLORIDE 93 mmol/L (98-107); COSMO 274; SODIUM 139 mmol/L (136-145); TCO2 34 mmol/L (25-35)
[2017-04-07] MEDS: NS + KCL 20 MEQ 1,000 ML IV SCH (06:43)
[2017-04-07] MEDS ORDERED: POTASSIUM CHLORIDE 20 MEQ/SWI 20 MEQ/100 ML IVPB IV SCH (07:30)
[2017-04-07] MEDS ORDERED: KLOR-CON PO ONE ×2 (07:32→10:39)
--- NOTE | 2017-04-07 09:00 | Diag Imaging Result Doc PS360 ---
US ABDOMEN-COMPLETE - 04/07/2017 INDICATION: gallstones COMPARISON: CT abdomen pelvis with contrast yesterday FINDINGS: The gallbladder is replaced with a wall echo shadow complex compatible with numerous shadowing gallstones. No inflammation or wall thickening. The liver, spleen, pancreas, and both kidneys are normal. Common bile duct measures 3 mm. The aorta, IVC, and main portal vein are patent. IMPRESSION: Gallbladder packed with numerous gallstones. Electronically signed by Roland Harris 04/07/2017 8:58 AM
[2017-04-07 10:38] LABS: HIV ANTIBODY SCREEN SEE COMMENTS
[2017-04-07 10:50] LABS: HEPATITIS PROFILE ACUTE SEE COMMENTS
[2017-04-07 12:17] VITALS: BP 107/74
[2017-04-07 12:48] LABS: AGAP 13; BUN 5 mg/dL (8-22); CALCIUM 8.9 mg/dL (8.8-10.2); CHLORIDE 95 mmol/L (98-107); COSMO 270; POTASSIUM 2.8 mmol/L (3.5-5.1); SODIUM 137 mmol/L (136-145); TCO2 29 mmol/L (25-35)
--- NOTE | 2017-04-07 15:48 | DISCHARGE SUMMARY ---
ADMISSION DATE: 04/06/2017 DISCHARGE DATE: 04/07/2017 HISTORY OF PRESENT ILLNESS: Vickie Lynn is a 21-year-old who was brought in. She had abdominal cramping, back spasm, and persistent diarrhea, recently discharged from service on 03/18/2017. Diagnosed with hypokalemia, hyponatremia, muscle cramps, question of whether she has an eating disorder. Family was not there during admission. Previous H and P reported 3-4 bowel movements a day. She denies any laxative use or over use. States that, in her mind, she is eating well and doing well. She had a few episodes of vomiting, also some dysuria. Denies fever or chills. She reports she has had some lower back pain. Denies any use of laxatives or diuretics. She has taken some Imodium before. She has lost some weight in the last couple of months. PAST MEDICAL HISTORY: Anxiety. Questionable eating disorder. She reports drinking 3 beers a day. HOSPITAL COURSE: She really was admitted for hypokalemia, given potassium IV, n.p.o., and brought it up a little bit, so I feel like she can go home. She is requesting to go home. Encouraged her to follow up with her primary care. Encouraged her to get good p.o. nutrition and I will give her some supplemental potassium to take at home. She did have gallstones in the gallbladder on the abdomen and pelvic CT, but really everything else was unremarkable. On looking at her laboratories, potassium was 3.1 and has gone down to 2.5. She has been given some fluids. Sodium went from 133 to 139, magnesium from 3.0 to 2.3, so doing well in that. Feel she can go home. Discharged on 04/07/2017, to follow up with her primary care. DISCHARGE MEDICATIONS: We will give her some Klor-Con 40 mEq and have her take it twice a day for the next week, and then go down to once a day after that. Follow up with primary care. cc: Fernandez Pacheco MD
[2017-04-07 15:49] LABS: AGAP 16; BUN 6 mg/dL (8-22); CALCIUM 9.6 mg/dL (8.8-10.2); CHLORIDE 91 mmol/L (98-107); COSMO 270; MAGNESIUM 2.1 mg/dL (1.5-2.7); POTASSIUM 3.2 mmol/L (3.5-5.1); SODIUM 137 mmol/L (136-145); TCO2 30 mmol/L (25-35)
== END 2017-04-07 16:49 | disposition home or self-care (01) ==
LOC: ED 09:44 → SUATTDRO 13:36 → 4N 13:36
PROVIDERS: ATTEND Emergency Medicine

== ENCOUNTER 2017-04-30 15:19 | Inpatient (IN) ==
[2017-04-30 15:58] LABS: MANUAL DIFF NEEDED? NO
[2017-04-30 16:01] LABS: BASO% 0.7 % (0.0-0.8); EOS# 0.02 X1000 (0.0-0.7); EOS% 0.4 % (0.0-10.0); HEMATOCRIT 42.7 % (37.0-47.0); HEMOGLOBIN 15.6 g/dL (12.0-16.0); LYMPH# 1.44 X1000 (1.2-3.4); LYMPH% 25.5 % (20.5-51.1); MCHC 36.5 g/dL (33-37); MCV 84.7 FL (81-99); MONO% 8.9 % (1.7-9.3); MPV 8.8 FL (7.4-10.4); NEUT% 64.5 % (42.2-75.2); PLT 382 X1000 (130-400); RBC 5.04 XMIL (4.2-5.4)
[2017-04-30 16:43] LABS: AGAP 10; ALBUMIN 4.2 g/dL (3.5-5.0); ALKALINE PHOSPHATASE 79 U/L (32-104); BUN 4 mg/dL (8-22); CALCIUM 9.4 mg/dL (8.8-10.2); CHLORIDE 79 mmol/L (98-107); COSMO 263; GOT 43 U/L (10-30); GPT 30 U/L (10-36); POTASSIUM 1.6 mmol/L (3.5-5.1); SODIUM 132 mmol/L (136-145); TCO2 43 mmol/L (25-35); TOTAL BILIRUBIN 0.98 mg/dL (0.20-1.00)
[2017-04-30] MEDS ORDERED: KLOR-CON PO ONE ×2 (16:51→21:16)
[2017-04-30] MEDS ORDERED: D5 1/2 NS + KCL 20 MEQ 1,000 ML IV SCH (16:53)
[2017-04-30] MEDS ORDERED: D5 1/2 NS + KCL 20 MEQ 1,000 ML ONE (17:05)
[2017-04-30] MEDS ORDERED: ATIVAN IV ONE (17:20)
[2017-04-30 17:27] LABS: URINE MICRO REVIEW NEEDED? NO; URINE SOURCE CLEAN CATCH
[2017-04-30 17:37] LABS: BILIRUBIN URINE NEGATIVE (NEGATIVE); BLOOD URINE NEGATIVE (NEGATIVE); COLOR YELLOW; GLUCOSE URINE NEGATIVE (NEGATIVE); LEUKOCYTES URINE TRACE (NEGATIVE); NITRITE URINE NEGATIVE (NEGATIVE); PH URINE 8.5; PROTEIN URINE 70 mg/dL (NEGATIVE); SP GRAVITY URINE 1.019; TURBIDITY URINE CLEAR (CLEAR); UROBILINOGEN URINE 2 mg/dL (NORMAL)
[2017-04-30 17:38] LABS: UR EPITHELIAL CELLS <10 /HPF (<10); URINE BACTERIA NEGATIVE /HPF; URINE CULTURE NEEDED? YES; URINE RBC <10 /HPF (<10)
[2017-04-30] MEDS ORDERED: POTASSIUM CHLORIDE 60 MEQ in NS 500 ML IV SCH (18:00)
--- NOTE | 2017-04-30 18:04 | PROVIDER DOCUMENTATION ---
This chart was entered by Jeanine Coffey Scribe, acting as scribe for Danilo Dye PA. HPI-General Adult - General Chief Complaint: Generalized Pain Stated Complaint: MUSCLE SPASMS Time Seen by Provider: 04/30/17 15:42 Source: patient Allergies/Adverse Reactions: Patient Allergies Allergy/AdvReac Type Severity Reaction Status Date / Time Penicillins AdvReac HIVES Verified 04/30/17 15:48 Home Medications: Home Medication List Medication Instructions Recorded Confirmed Last Taken Type Potassium Chloride [Klor-Con M20] 20 meq PO BID #60 tab.er.prt 04/07/17 Unknown Rx - History of Present Illness -Gen Adult Nature of Presenting Problems: 21 yo F presents to the ER with complaint of muscle spasms in her calves and back, states she has a history of low potassium when she had these symptoms. Pt has IBS and frequent diarrhea, states she takes oral potassium but majority of the time she sees the potassium pill in tact in her stool. Pt states she has a history of eating disorder, which lead to her IBS, this past year she has lost 10-15 from the IBS. States she is not currently under the care of a GI doctor. Associated Symptoms: reports: diarrhea, muscle aches (spasms). denies: weakness Review of Systems - Adult - REVIEW OF SYSTEMS - ADULT Constitutional: denies: chills, fever Eyes: reports: no symptoms reported Ears, Nose, Mouth & Throat: reports: no symptoms reported Cardiovascular: reports: no symptoms reported Respiratory: reports: no symptoms reported Gastrointestinal: reports: diarrhea. denies: abdominal pain, nausea, vomiting Genitourinary: reports: no symptoms reported Musculoskeletal: reports: see HPI, muscle aches. denies: joint pain Integumentary: reports: no symptoms reported Neurological: reports: no symptoms reported Psychiatric: reports: no symptoms reported Endocrine: reports: no symptoms reported Hematologic/Lymphatic: reports: no symptoms reported Allergic/Immunologic: reports: no symptoms reported All Other Systems: Reviewed and Negative Past History - Adult - PAST MEDICAL HISTORY-ADULT Review of Records: reports: Nursing Assessment Review, Medications Reviewed Respiratory: reports: asthma Gastrointestinal: reports: IBS Psychiatric: reports: anxiety, other (hx of eating disorder) - IMMUNIZATION STATUS Childhood Immunizations: See Nurse Assessment Flu Vaccine: See Nurse Assessment - FAMILY HISTORY Family History: reviewed, not pertinent Physical Exam-General - PHYSICAL EXAM-ADULT Initial Vital Signs Reviewed: Yes - CONSTITUTIONAL General Appearance: alert, no apparent distress, thin - EYES Eyes: PERRL/EOMI, pink conjunctivae - HEAD, EARS, NOSE, MOUTH & THROAT HENMT: normocephalic/atraumatic, normal ENT inspection - NECK Neck: supple, normal inspection - RESPIRATORY Respiratory: no respiratory distress, no accessory muscle use - CARDIOVASCULAR Cardiovascular: normal peripheral pulses, regular rate, rhythm - GASTROINTESTINAL (ABDOMEN) Abdominal Exam: non tender, soft - MUSCULOSKELETAL Back Exam: no CVA tenderness, no vertebral tenderness Extremity: normal gait, normal inspection - SKIN Integumentary: normal color, warm/dry - NEUROLOGIC Neurologic: grossly normal, no motor/sensory deficits - PSYCHIATRIC Psych/Mental Status: normal mood/affect, normal thought content, normal thought process, oriented x 3 Progress - PLAN OF CARE/RESULTS Progress/Plan/Lab Results: Vital Signs - 8 hr 04/30/17 15:28 Temperature 98.5 F Pulse Rate 74 Respiratory Rate 18 Blood Pressure 109/66 O2 Sat by Pulse Oximetry 100 Laboratory Results - last 24 hr 04/30/17 15:48 WBC 5.64 RBC 5.04 Hgb 15.6 Hct 42.7 MCV 84.7 MCH 31.0 MCHC 36.5 RDW Std Deviation 13.5 Plt Count 382 MPV 8.8 Immature Gran % (Auto) 0.0 Neut % (Auto) 64.5 Lymph % (Auto) 25.5 [place] % (Auto) 8.9 Eos % (Auto) 0.4 Baso % (Auto) 0.7 Immature Gran # (Auto) 0.00 Neut # (Auto) 3.64 Lymph # (Auto) 1.44 [place] # (Auto) 0.50 Eos # (Auto) 0.02 Baso # (Auto) 0.04 Orders Category Date Time Status CBC WITH DIFF [HEME] Stat Lab 04/30/17 15:48 Completed COMPREHENSIVE METABOLIC PANEL [CHEM] Stat Lab 04/30/17 15:48 Received MAGNESIUM [CHEM] Stat Lab 04/30/17 15:48 Received UA NIMS W/REFLEX CULT [URINALYSIS] Stat Lab 04/30/17 15:48 Ordered Result Diagrams: 04/30/17 15:48 04/30/17 15:48 - EKG 1 Time of EKG reading by physician:: 16:46 EKG Read and Signed by:: Soha Garzon EKG Interpretation (*Must complete 3 of following elements*): Abnormal Rate: 65 Rhythm: normal sinus rhythm [place]: normal ID Interval: prolonged (QT) ST Wave: non-specific ST changes - CONSULTS/PCP/HOSPITALIST Notification #1 *Consult/PCP/Hospitalist*: Dr. Harp (Hospitalist) Time Discussed: 18:01 Reason/Comments: Will see pt in the ER and admit and write all orders. Departure - Departure Date of Disposition Decision: 04/30/17 Time of Disposition Decision: 18:03 DIAGNOSIS: Hypokalemia, Unintentional weight loss Disposition: ADMITTED INPATIENT 09 Certified Medical Emergency: Emergent Condition: Stable Referrals and Follow-Ups: None,PCP [Primary Care Provider] - - Critical Care Note This patient required my direct & personal management of CC.: No Attestation - Physician/ LUCITA Attestation Patient care was provided by Advanced Practice Provider:: Yes Advanced Practice Provider:: Danilo Dye Advanced Practice Provider documentation review:: The Mid-level provider documentation, treatment plan and medical decision making was reviewed by the physician who agrees with all treatment and medical decision making by the MLP. This chart was documented by the indicated scribe, (Jeanine Coffey Scribe) and accurately reflects the services I performed and decisions made by me, Danilo Dye PA, as attested by the provider's signature.
[2017-04-30 21:09] LABS: UR AMPHETAMINES QUAL NONE DETECTED (NONE DETECT); UR BARBITUATES QUAL NONE DETECTED (NONE DETECT); UR BENZODIAZEPIN QUAL PRESUMPTIVE POSITIVE (NONE DETECT); UR CANNABINOIDS QUAL NONE DETECTED (NONE DETECT); UR COCAINE QUAL NONE DETECTED (NONE DETECT); UR METHADONE QUAL NONE DETECTED (NONE DETECT); UR OPIATES QUAL NONE DETECTED (NONE DETECT); UR OXYCODONE QUAL NONE DETECTED (NONE DETECT); UR PCP QUAL NONE DETECTED (NONE DETECT)
[2017-04-30] MEDS ORDERED: POTASSIUM CHLORIDE 20% LIQUID PO ONE (21:15)
[2017-04-30] MEDS ORDERED: POTASSIUM CHLORIDE 20 MEQ/SWI 20 MEQ/100 ML IVPB IV ONE (21:15)
[2017-04-30] MEDS ORDERED: TYLENOL PO PRN (21:27)
[2017-04-30] MEDS ORDERED: LOMOTIL PO ONE (21:27)
[2017-04-30] MEDS ORDERED: ZOFRAN IV PRN (21:27)
--- NOTE | 2017-04-30 21:30 | HISTORY AND PHYSICAL ---
REASON FOR ADMISSION: Diffuse muscular cramps and tingling lower extremities. HISTORY OF PRESENT ILLNESS: Ms. Vickie Lynn is 21-year-old lady with past medical history of chronic diarrhea 4-5 times a day nonbloody. This is ongoing for over a year. Prior to that she had been abusing laxatives and has since stopped abusing laxatives since she developed chronic diarrhea from this. As a consequence of this, this is her 4th time come to the hospital for hypokalemia. She complains today complaining of shortness of breath, chest heaviness and with diffuse cramping all over, more on extremities. She also complains of tingling and unusual numbness in the distal aspects of her extremities. No loss of consciousness but has a prior history of being almost paralyzed from having low potassium. No nausea, vomiting or abdominal pain. No other cardiorespiratory symptoms. No abdominal distention. No genitourinary complaints. No focal neurological complaints. No visual complaints. No rash or arthralgia. The patient reports that she has been given potassium pills each time she is discharged and on many occasions she is seeing the pills in her stool. REVIEW OF SYSTEMS: 12 system positive per HPI. ALLERGIES: Penicillin. MEDICATION: Potassium tablets 10-20 mEq p.r.n. SURGICAL HISTORY: Tonsillectomy. SOCIAL HISTORY: Drinks about a beer a day, no more than a beer a day. No smoking or drugs, lives with her dad and is recently relocated from [place]. FAMILY HISTORY: She said both her dad and brother have unusual chronic diarrhea. LABORATORY WORK: White count 5000, hemoglobin and hematocrit 15 and 42, platelets 382,000. Sodium 132, potassium 1.6, bicarb 43, anion gap is 10, BUN is 4, creatinine 0.9, glucose 120, AST 43, ALT 30, magnesium 1.7. Urinalysis showed a pH of 8.5. EKG was ordered pending at this time. PHYSICAL EXAMINATION: VITAL SIGNS: Blood pressure 109/66, heart rate 74, respirations 18, temperature is 98.5 degrees, 100% room air. GENERAL: Young thin pale lady who is lying on the bed. No acute distress, she is A and O x3 with normal mood and affect. HEENT: Head is normocephalic, atraumatic. PERRLA, EOMI, sclera anicteric, not pale. ENT exam grossly normal, no unusual dental caries, no oral ulcers. NECK: Supple. No JVD or carotid bruit. No thyromegaly. No lymph nodes in the supraclavicular area and cervical area. CHEST: Clear to auscultation. Good inspiration both lung smiley. CARDIOVASCULAR: First, 2nd heart sounds heard. No gallops, rubs. Rhythm is regular. ABDOMEN: Protuberant, soft, nontender, no megaly, bowel sounds are slightly hyperactive. RECTAL: Deferred at this time. EXTREMITIES: No edema, clubbing, cyanosis. Pulses distal lower extremities have good volume and symmetrical. NEURO: Grossly normal. MUSCULOSKELETAL: Grossly normal. SKIN: Intact. No breakdown, lesions. ASSESSMENT: This time. 1. Severe hypokalemia secondary to chronic diarrhea. 2. Chronic diarrhea etiology yet to be determined cannot rule out persistent laxative use versus diuretic abuse. PLAN: This time will consult Dr. Murrell to address etiology of her chronic diarrhea. I will also do an ABG to see what acid-base disturbance she may have and then make a more educated guess as to how we can manage this. I would expect her to have some degree of non anion gap acidosis. However she has only usually elevated bicarbonate which will be usually seen someone who is vomiting, also who has metabolic alkalosis from a renal disorder. When usually except she has a VIPoma or a large villous adenoma the patient can have notable metabolic alkalosis. Other than this I find that somewhat unusual to have a metabolic alkalosis in a patient with chronic diarrhea. This is being investigated further, will consult Dr. Murrell for this. Hydrate patient. Replace potassium and check in the next 3-4 hours. Also order a celiac profile , also thyroid studies to rule out hypokalemic paralytic paralysis and ordered an ANCA to see she probably has underlying IBD. She has not had colonoscopy done and this may be warranted in this case. She gets minimal relief from Imodium and will try 1 time dose of Lomotil and see how this can slow down her diarrhea and also patient is scheduled [facility] so they can keep a close eye on her potassium level . cc: MD SJ Perez
[2017-04-30] MEDS: NS + KCL 40 MEQ 1,000 ML IV SCH (21:55)
[2017-04-30] MEDS: POTASSIUM CHLORIDE 20% LIQUID PO SCH (21:55)
[2017-05-01] MEDS: POTASSIUM CHLORIDE 20% LIQUID PO SCH ×3 (00:40→07:02)
[2017-05-01] MEDS: NS + KCL 40 MEQ 1,000 ML IV SCH ×3 (05:18→17:28)
[2017-05-01 06:11] LABS: MANUAL DIFF NEEDED? NO
[2017-05-01 06:29] LABS: BASO% 0.2 % (0.0-0.8); EOS# 0.08 X1000 (0.0-0.7); EOS% 1.9 % (0.0-10.0); HEMATOCRIT 36.6 % (37.0-47.0); HEMOGLOBIN 13.1 g/dL (12.0-16.0); LYMPH# 2.32 X1000 (1.2-3.4); LYMPH% 54.5 % (20.5-51.1); MCH 31.3 PG (27-31); MCHC 35.8 g/dL (33-37); MCV 87.4 FL (81-99); MONO# 0.36 X1000 (0.11-0.59); MONO% 8.5 % (1.7-9.3); MPV 8.9 FL (7.4-10.4); NEUT% 34.9 % (42.2-75.2); PLT 283 X1000 (130-400); RBC 4.19 XMIL (4.2-5.4)
[2017-05-01 06:58] LABS: AGAP 9; BUN 3 mg/dL (8-22); CALCIUM 8.2 mg/dL (8.8-10.2); CHLORIDE 97 mmol/L (98-107); COSMO 273; MAGNESIUM 1.7 mg/dL (1.5-2.7); POTASSIUM 2.9 mmol/L (3.5-5.1); SODIUM 139 mmol/L (136-145); TCO2 33 mmol/L (25-35)
--- NOTE | 2017-05-01 07:00 | EKG Report ---
Test Performed on : 04/30/2017 4:46:35 PM Test Reason : re-order Blood Pressure : / mmHG Vent. Rate : 065 BPM Atrial Rate : 065 BPM P-R Int : 146 ms QRS Dur : 108 ms QT Int : 482 ms P-R-T Axes : 072 078 055 degrees QTc Int : 501 ms Normal sinus rhythm. Nonspecific ST abnormality Prolonged QT Abnormal ECG When compared with ECG of 07-APR-2017 02:33, Vent. rate has increased BY [address] more depressed in Inferior leads QT has lengthened Unconfirmed Result
[2017-05-01] MEDS: POTASSIUM CHLORIDE 60 MEQ in NS 500 ML IV ONE ×2 (15:54→15:56)
[2017-05-01] MEDS ORDERED: XANAX PO ONE (16:55)
--- NOTE | 2017-05-01 17:34 | CONSULTATION ---
DATE OF CONSULTATION: 05/01/2017 REASON FOR REFERRAL: Diarrhea. Abdominal pain. HISTORY OF PRESENT ILLNESS: This is a 21-year-old, who reports diarrhea over the last several months. She reports 4-5 loose to watery stools a day. She denies blood in the stool, but reports occasional mucus in the stool. She denies significant abdominal pain, but does report abdominal urgency with the diarrhea. She states she was diagnosed in the past with irritable bowel syndrome. In the past she had reported constipation versus diarrhea, but over the last several months she has had more diarrhea than constipation. She denies taking currently laxatives. She reports never having an EGD or colonoscopy. When she was admitted, she was noted to have a severely low potassium. She has had replacement. No reported dizziness or lightheadedness. No reported chest pain or shortness of breath. She reports diarrhea, 4-5 loose stools daily with urgency. She does report some frequent urinary tract infections. No history of headache or seizures. FAMILY HISTORY: Celiac disease in her sister, it is a half-sister. She states there are bowel and colon issues on her father's side. Her paternal grandmother may have had colon cancer. PAST MEDICAL HISTORY: Anxiety. PAST SURGICAL HISTORY: Tonsillectomy. ALLERGIES: Penicillin, causing hives. HOME MEDICATION: Potassium 20 mEq twice daily. SOCIAL HISTORY: Positive for tobacco use, socially. Reports ETOH use daily. She is single, no children. She is not currently working. FAMILY HISTORY: She has a half sister who has celiac disease. Stomach/colon issues on fathers side. REVIEW OF SYSTEMS: Per HPI. PHYSICAL EXAMINATION: Vital Signs: Temperature 98.2 degrees, pulse 58, respirations 20, blood pressure 80/39. PHYSICAL EXAMINATION: Generally: Patient is awake, alert in no acute distress. HEENT: Normocephalic, atraumatic. Pupils equal, round, reactive to light. Sclerae are nonicteric. Respiratory: Lung sounds clear bilaterally. Cardiovascular: Regular rate and rhythm. Abdomen: Soft, nontender, positive bowel sounds. Extremities: No lower extremity edema noted. DIAGNOSTIC RESULTS: Hematology: White count 4.26, hemoglobin 13.1, hematocrit 36.6, MCV 87.4, platelets 283,000. Chemistry: Sodium 139, potassium 2.9. On admission, her potassium was 1.6, chloride 97, BUN 3, creatinine 0.6, glucose 87, calcium 8.2, magnesium 1.7. Total bilirubin 0.98, AST 43, ALT 30, alkaline phosphatase 70, TSH 1.11. Urinalysis showed 70 protein , trace leukocytes, 10-20 White blood cells. Toxicology positive for benzodiazepine. Other toxicology was negative. ASSESSMENT AND PLAN: 1. Diarrhea. 2. Weight loss. 3. Hypokalemia. PLAN: Continue to correct potassium. So far stool studies have been negative. A celiac profile and P-ANCA have been ordered, waiting results. She will most likely need colonoscopy. I have discussed this with the patient. She states she would prefer to be discharged and have the colonoscopy done as an outpatient. I will discuss the case with Dr. García. If she is discharged, we will follow up with her as an outpatient for further evaluation. Thank you for this consultation. Dictated by DO Agustin for Marvin García MD cc: DO Nye MD [facility]
[2017-05-02] MEDS: NS + KCL 40 MEQ 1,000 ML IV SCH ×2 (03:21→10:07)
[2017-05-02 06:54] LABS: AGAP 9; BUN 3 mg/dL (8-22); CALCIUM 8.2 mg/dL (8.8-10.2); CHLORIDE 102 mmol/L (98-107); COSMO 275; SODIUM 140 mmol/L (136-145); TCO2 29 mmol/L (25-35)
[2017-05-02] MEDS ORDERED: MAGNESIUM SULFATE 1 GM/D5W 1 GM/100 ML IVPB IV ONE (10:34)
[2017-05-02] MEDS ORDERED: POTASSIUM CHLORIDE 20 MEQ/SWI 20 MEQ/100 ML IVPB IV SCH (11:00)
--- NOTE | 2017-05-02 11:33 | PROGRESS NOTE ---
DATE: 05/02/2017 SUBJECTIVE: Patient states she is feeling about the same. She reports having a loose stool this morning. VITAL SIGNS: Temperature 98.0 degrees, pulse 48, respirations 15, blood pressure 81/44. LABORATORY: From 05/01/2017: Hematology: White count 4.26, hemoglobin 13.1, hematocrit 36.6, MCV 87.4, platelets 283. Chemistry 05/02/2017: Sodium 140, potassium 3.0, chloride 102, CO2 29, BUN 3 and creatinine 0.6. ASSESSMENT AND PLAN: 1. Hypokalemia, receiving replacement. 2. Chronic diarrhea. I have discussed with patient the option of proceeding with a colonoscopy while in the hospital for further evaluation of chronic diarrhea. She does not want to proceed with a colonoscopy while in the hospital. She wants to follow up with us as an outpatient. I have given her our office number and information to follow up once she is discharged. We will continue to be available during her hospital course if she wishes to proceed. P-ANCA and celiac panel is pending. Will follow on those results. Further plans will be made as needed. Dictated by DO Agustin for Marvin García MD cc: DO Nye MD
[2017-05-02] MEDS ORDERED: POTASSIUM CHLORIDE 20% LIQUID PO ONE (12:56)
--- NOTE | 2017-05-02 14:09 | PROGRESS NOTE ---
DATE: 05/02/2017 SUBJECTIVE: The patient is doing well. She wants to go home. No fever. No chills. No nausea, or vomiting. Her diarrhea is at her baseline. OBJECTIVE: Blood pressure ranging from 89-94/32-44. Asymptomatic. Pulse of 48, respiratory rate of 15, temperature of 98 degrees.General Appearance: Thin, white female in no acute distress, sitting up eating her lunch when I saw her. HEENT: Anicteric sclerae and conjunctivae. Neck: Supple. No JVD. No bruit. Cardiovascular: S1, S2. Normal rate and rhythm. No murmur, rubs, or gallops. Pulmonary: Clear. GI: Soft, nontender, nondistended. Normoactive bowel sounds. Musculoskeletal: No clubbing, cyanosis, or edema. LABORATORY REVIEW: No. ASSESSMENT AND PLAN: Chronic diarrhea with hypomagnesemia and hypokalemia. We will replete both with her potassium and magnesium. We will add magnesium at discharge and the patient is on potassium at home. Advised the patient to follow with Dr. García for outpatient colonoscopy. From my standpoint, the patient can be discharged.
[2017-05-02 14:16] VITALS: BP 77/48
--- NOTE | 2017-05-02 15:21 | DISCHARGE SUMMARY ---
ADMISSION DATE: 04/30/2017 DISCHARGE DATE: 05/02/2017 CONSULTATIONS: Dr. García with gastroenterology. PERTINENT PROCEDURES: EKG showed normal sinus rhythm with nonspecific ST abnormality and a prolonged QT. QT interval was 480 and QTc was 501. DISCHARGE DIAGNOSES: 1. Hypokalemia, improved with supplementation. 2. Chronic diarrhea. Dr. García discussed with the patient the option for proceeding with a colonoscopy while in the hospital for evaluation of chronic diarrhea. However, the patient does not want to proceed with a colonoscopy while in the hospital; she was to follow up as an outpatient. She has been given office number with information to follow up after discharge. 3. Eating disorder, unsure if anorexia nervosa or bulimia. The patient was not giving much information. However, she has had several admissions for hypokalemia as well as hypomagnesemia. HOSPITAL COURSE: Ms. Lynn is a 21-year-old female who carries a past medical history of chronic diarrhea 4-5 times a day; they are nonbloody. It has been ongoing for over a year. Prior to that she had been abusing laxatives and since she stopped abusing laxatives she developed chronic diarrhea. On a previous admission her father had stated that she had been hospitalized in [place] for an eating disorder. As a consequence of her chronic diarrhea, this is her 4th admission to the hospital for hypokalemia. She came in with complaints of shortness of breath, chest heaviness, with diffuse cramping allover, more in her extremities. Also complained of tingling sensation and unusual numbness in the distal aspects of her extremities. No nausea, vomiting, or abdominal pain. No abdominal distention. The patient reports that she has been given potassium pills each time she is discharged and on many occasions she states the pill is in her stool. The patient was admitted to the medical telemetry floor. Monitored her electrolytes closely and replenished them as needed. Dr. García with GI sent stool studies and have been negative so far. Celiac profile as well as a P-ANCA have been ordered and still pending those results. They suggested that the patient undergo a colonoscopy. However, she declines at the moment and would rather have it on an outpatient basis. She has being given the number to Dr. García's office, as well as information to follow up once she is discharged. Her electrolytes are within normal limits. The patient is being discharged home today. VITAL SIGNS: Temperature is 97.6 degrees, heart rate 48, respirations 15, blood pressure is 94/32, O2 is 94% on room air. DISCHARGE DIET: Regular. DISCHARGE MEDICATIONS: PER DR. TURNER PLEASE SEE MAR DISCHARGE INSTRUCTIONS: Patient is being discharged home with self care. She will need to continue to take her potassium and magnesium. She will need to follow a regular diet and not to avoid salt or potassium containing foods. She will also need to follow up either with a primary care physician or at the [facility] and continue to follow up with Dr. García for colonoscopy. The patient can return to the ED for any worsening of symptoms. Dictated by DO Infante for Wilton Turner MD Addendum: I personally evaluated and examined the patient in conjunction to the [employer]ICAL [employer]THLET[employer] INSTRUCTOR and agreed with her disposition. See my PN for exam. [id number]
[2017-05-03 14:02] LABS: CELIAC DISEASE PROFILE SEE COMMENTS; TISSUE TRANSGLUTAMINASE IGA SEE COMMENTS
--- NOTE | 2017-05-16 14:19 | CONSULTATION ---
DATE OF CONSULTATION: 05/16/2017 REASON FOR CONSULTATION: Diarrhea. HISTORY OF PRESENT ILLNESS: This is a 21-year-old who was recently in the hospital with the same symptoms. At that time we had seen her and she did not want to proceed with a colonoscopy as an inpatient. She wanted to follow up with us as an outpatient. She had not followed in our office yet and was readmitted for diarrhea and hypokalemia. She continues to report 4- 6 loose stools daily. She has a history of chronic laxative use for weight loss but states she had stopped using laxatives over year ago and has continued to have diarrhea off and on. She reports over the last several months she has lost about 10 pounds. She denies blood in the stool. She does report occasional mucus in the stool. She reports a family history of celiac disease in a half-sister. Last admission she had a celiac panel and IgA that were negative. She also had an ANCA level that was normal. No reported nausea or vomiting. She has a history of frequent urinary tract infections. PAST MEDICAL HISTORY: Anxiety, chronic diarrhea, history of laxative use. PAST SURGICAL HISTORY: Tonsillectomy. ALLERGY: Penicillin causing hives. HOME MEDICATIONS: Aldactone 25 mg daily, potassium 40 mEq daily. SOCIAL HISTORY: Positive for alcohol use daily 3-6 beers daily. Smokes socially. FAMILY HISTORY: Reports family history of chronic diarrhea in her brother and father, history of celiac disease in a half-sister. REVIEW OF SYSTEMS: Per HPI. PHYSICAL EXAM: Vital Signs: Temperature 97.9 degrees, pulse 87, respirations 16, blood pressure 93/49. Generally: Patient is awake, alert, no acute distress. HEENT: Normocephalic, atraumatic. Pupils equal, round, reactive to light. Sclerae nonicteric. Cardiovascular: Regular rate and rhythm. Respiratory: Lung sounds clear bilaterally. Abdomen : Soft, nontender. Positive bowel sounds. Extremities: No lower extremity edema noted. Pedal pulses present bilaterally. Neurological: Cranial nerves 2-12 grossly intact. Patient is awake, alert, and oriented to person, place, and time. DIAGNOSTIC RESULTS: Laboratory. Hematology. White count 4.86, hemoglobin 16.0, hematocrit 45.0, MCV 87.2, platelet 398,000. Chemistry. Sodium 132, potassium 2.0, chloride 86, CO2 36, BUN 5, creatinine 0.7, total bilirubin 0.86, AST 31, ALT 16, alkaline phosphatase 74. ASSESSMENT: 1. Chronic diarrhea. 2. Hypokalemia currently receiving replacement. 3. History of chronic laxative use. PLAN: Continue supportive care. Continue symptomatic treatment. We are awaiting stool studies. Replacement of potassium. We will plan to proceed with a colonoscopy with biopsy. Further plans to be made according to findings. I have discussed the procedure with the patient along with benefits and risks of the procedure and she wishes to proceed. I have discussed this case with Dr. García. Thank you for this consult. Dictated by DO Agustin for Marvin García MD cc: DO Nye MD [facility]
== END 2017-05-02 18:18 | disposition home or self-care (01) ==
LOC: ED 15:19 → 3N 20:46 → SUATTDRO 20:46 → 3N 20:50
PROVIDERS: ATTEND Internal Medicine

== ENCOUNTER 2017-05-15 15:05 | Inpatient (IN) ==
[2017-05-15 15:33] LABS: MANUAL DIFF NEEDED? NO
--- NOTE | 2017-05-15 15:33 | EKG Report ---
Test Performed on : 05/15/2017 3:14:34 PM Test Reason : palpitation Blood Pressure : / mmHG Vent. Rate : 064 BPM Atrial Rate : 064 BPM P-R Int : 146 ms QRS Dur : 106 ms QT Int : 464 ms P-R-T Axes : 078 083 062 degrees QTc Int : 478 ms Normal sinus rhythm. Junctional ST depression, probably normal Borderline ECG When compared with ECG of 09-MAY-2017 11:09, Vent. rate has decreased BY 31 BPM T wave inversion no longer evident in Inferior leads T wave inversion less evident in Anterior leads Unconfirmed Result
[2017-05-15 15:37] LABS: URINE CULTURE NEEDED? NO; URINE MICRO REVIEW NEEDED? NO; URINE SOURCE CLEAN CATCH
[2017-05-15 15:47] LABS: BASO% 0.6 % (0.0-0.8); EOS# 0.04 X1000 (0.0-0.7); EOS% 0.8 % (0.0-10.0); LYMPH# 1.72 X1000 (1.2-3.4); LYMPH% 35.4 % (20.5-51.1); MCHC 35.6 g/dL (33-37); MCV 87.2 FL (81-99); MONO# 0.51 X1000 (0.11-0.59); MONO% 10.5 % (1.7-9.3); MPV 8.6 FL (7.4-10.4); NEUT% 52.7 % (42.2-75.2); PLT 398 X1000 (130-400); RBC 5.16 XMIL (4.2-5.4)
[2017-05-15 15:49] LABS: BILIRUBIN URINE NEGATIVE (NEGATIVE); BLOOD URINE NEGATIVE (NEGATIVE); COLOR YELLOW; GLUCOSE URINE NEGATIVE (NEGATIVE); LEUKOCYTES URINE NEGATIVE (NEGATIVE); NITRITE URINE NEGATIVE (NEGATIVE); PH URINE 8.5; PROTEIN URINE 600 mg/dL (NEGATIVE); SP GRAVITY URINE 1.024; TURBIDITY URINE CLEAR (CLEAR); UROBILINOGEN URINE 3 mg/dL (NORMAL)
[2017-05-15 15:50] LABS: UR EPITHELIAL CELLS <10 /HPF (<10); URINE BACTERIA NEGATIVE /HPF; URINE RBC <10 /HPF (<10); URINE WBC <10 /HPF (<10)
[2017-05-15 16:31] LABS: SODIUM 134 mmol/L (136-145)
[2017-05-15 16:32] LABS: AGAP 14; ALBUMIN 4.2 g/dL (3.5-5.0); ALKALINE PHOSPHATASE 74 U/L (32-104); BUN 7 mg/dL (8-22); CALCIUM 9.1 mg/dL (8.8-10.2); CHLORIDE 80 mmol/L (98-107); COSMO 268; GOT 31 U/L (10-30); GPT 16 U/L (10-36); TCO2 40 mmol/L (25-35); TOTAL BILIRUBIN 0.86 mg/dL (0.20-1.00)
[2017-05-15] MEDS ORDERED: KLOR-CON PO ONE (16:37)
[2017-05-15] MEDS ORDERED: KLOR-CON ONE (16:39)
--- NOTE | 2017-05-15 16:51 | ED EKG INTERP ---
This chart was entered by Nilsa Lee Scribe, acting as scribe for Soha Garzon MD. EKG Interpretation - EKG Time of EKG reading by physician:: 15:14 EKG Read and Signed by:: Soha Garzon EKG Interpretation (*Must complete 3 of following elements*): Abnormal Rate: 64 Rhythm: normal sinus rhythm Comments: junctional ST depression, probably normal This chart was documented by the indicated scribe, (Nilsa Lee Scribe) and accurately reflects the services I performed and decisions made by me, Soha Garzon MD, as attested by the provider's signature.
--- NOTE | 2017-05-15 17:35 | PROVIDER DOCUMENTATION ---
This chart was entered by Nilsa Lee Scribe, acting as scribe for Soha Garzon MD. HPI-General Adult - General Chief Complaint: Palpitations Stated Complaint: POSS LOW POTASSIUM Time Seen by Provider: 05/15/17 16:56 Source: patient Allergies/Adverse Reactions: Patient Allergies Allergy/AdvReac Type Severity Reaction Status Date / Time Penicillins AdvReac HIVES Verified 05/09/17 11:23 Home Medications: Home Medication List Medication Instructions Recorded Confirmed Last Taken Type Magnesium Oxide 250 mg PO DAILY #30 tablet 05/02/17 05/09/17 Unknown Rx Potassium Chloride 20 meq PO DAILY #300 liquid 05/02/17 05/09/17 05/09/17 08:00 Rx Potassium Chloride 20% Liquid 40 meq PO DAILY #500 udc 05/09/17 Unknown Rx Spironolactone [Aldactone] 25 mg PO DAILY #90 tablet 05/09/17 Unknown Rx - History of Present Illness -Gen Adult Nature of Presenting Problems: Pt is 21 y/o F presents to the ED with N and D. Pt states symptoms have been presents for 3 mths. Pt states she has lost 15 lbs in 2 mths. Pt states chronic low potassium. Pt states 5 to 6 episodes of D. Pt states hx of laxative abuse and bulimia. Location of Pain/Injury: reports: none Pain Radiation: reports: no radiation Quality of Pain: reports: none Severity: reports: mild Onset/Duration: reports: other (3 mths) Timing: reports: still present Context/Activities at Onset: reports: light activity Modifying Factors: improves with: nothing Associated Symptoms: reports: diarrhea, nausea. denies: anxiety, arm pain, back /neck pain, chest pain, constipation, cough, diaphoresis, dizziness, EENT symptoms, fatigue, fever/chills, genitourinary problems, headaches, heartburn, joint pain, loss of appetite, malaise, muscle aches, sinus congestion/drainage, rash, seizure, shortness of breath, sensory/motor loss, pain with inspiration, swelling/mass in abdomen, syncope, vomiting, weakness, trouble walking Similar Symptoms Previously?: Yes Recently seen or treated by another doctor?: Yes Review of Systems - Adult - REVIEW OF SYSTEMS - ADULT Constitutional: reports: no symptoms reported Eyes: reports: no symptoms reported Ears, Nose, Mouth & Throat: reports: no symptoms reported Cardiovascular: reports: no symptoms reported Respiratory: reports: no symptoms reported Gastrointestinal: reports: diarrhea, nausea Genitourinary: reports: no symptoms reported Musculoskeletal: reports: no symptoms reported Integumentary: reports: no symptoms reported Neurological: reports: no symptoms reported Psychiatric: reports: no symptoms reported Endocrine: reports: no symptoms reported Hematologic/Lymphatic: reports: no symptoms reported Allergic/Immunologic: reports: no symptoms reported All Other Systems: Reviewed and Negative Past History - Adult - PAST MEDICAL HISTORY-ADULT Review of Records: reports: Nursing Assessment Review, Medications Reviewed, Social history reviewed & non-contributory. Major Childhood Illnesses: reports: denies history Cardiovascular: reports: denies history Respiratory: reports: asthma Gastrointestinal: reports: IBS Obstetrical/Gynecological: reports: denies history Genitourinary: reports: denies history Musculoskeletal: reports: denies history Neurological: reports: denies history Psychiatric: reports: anxiety, other (hx of eating disorder) Endocrine/Immune: reports: denies history Other Conditions: reports: denies history - PRIOR SURGERIES/PROCEDURES Surgical/Procedure History: reports: tonsillectomy - IMMUNIZATION STATUS Childhood Immunizations: See Nurse Assessment Flu Vaccine: See Nurse Assessment - FAMILY HISTORY Family History: reviewed, not pertinent - SOCIAL HISTORY Smoking: denies Substance Use: alcohol Alcohol Use Frequency: every day Number of drinks per typical drinking period:: 5-10 drinks Living Situation: family Physical Exam-General - PHYSICAL EXAM-ADULT Initial Vital Signs Reviewed: Yes - CONSTITUTIONAL General Appearance: appears well, alert, no apparent distress - EYES Eyes: PERRL/EOMI, pink conjunctivae - HEAD, EARS, NOSE, MOUTH & THROAT HENMT: normocephalic/atraumatic, moist mucous membranes, normal ENT inspection - NECK Neck: non-tender, full range of motion, supple, normal inspection - RESPIRATORY Respiratory: chest non-tender, lungs clear, normal breath sounds - CARDIOVASCULAR Cardiovascular: normal peripheral pulses, regular rate, rhythm - GASTROINTESTINAL (ABDOMEN) Abdominal Exam: normal bowel sounds, non tender, soft - LYMPHATIC Lymphatic: no adenopathy - MUSCULOSKELETAL Back Exam: normal inspection, no CVA tenderness, no vertebral tenderness Extremity: normal range of motion, non-tender, normal gait, normal inspection - SKIN Integumentary: normal color, normal turgor, warm/dry - NEUROLOGIC Neurologic: grossly normal - PSYCHIATRIC Psych/Mental Status: normal mood/affect, oriented x 3 Progress - PLAN OF CARE/RESULTS Progress/Plan/Lab Results: Vital Signs - 8 hr 05/15/17 15:09 Temperature 97.7 F Pulse Rate 75 Respiratory Rate 18 Blood Pressure 114/63 O2 Sat by Pulse Oximetry 100 Laboratory Results - last 24 hr 05/15/17 05/15/17 05/15/17 15:18 15:18 15:20 WBC 4.86 RBC 5.16 Hgb 16.0 Hct 45.0 MCV 87.2 MCH 31.0 MCHC 35.6 RDW Std Deviation 13.7 Plt Count 398 MPV 8.6 Neut % (Auto) 52.7 Lymph % (Auto) 35.4 Isabela % (Auto) 10.5 H Eos % (Auto) 0.8 Baso % (Auto) 0.6 Neut # (Auto) 2.56 Lymph # (Auto) 1.72 Isabela # (Auto) 0.51 Eos # (Auto) 0.04 Baso # (Auto) 0.03 Sodium Potassium Chloride Carbon Dioxide Anion Gap BUN Creatinine Estimated GFR/1.73 m2 BUN/Creatinine Ratio Glucose Calculated Osmolality Calcium Total Bilirubin AST ALT Alkaline Phosphatase Total Protein Albumin Globulin Albumin/Globulin Ratio Urine Source CLEAN CATCH Urine Color YELLOW Urine Turbidity CLEAR Urine pH 8.5 Ur Specific Maxwell 1.024 Urine Protein 600 A Ur Glucose (Stick) NEGATIVE Ur Ketones (Stick) TRACE A Urine Blood NEGATIVE Urine Nitrite NEGATIVE Urine Bilirubin NEGATIVE Urobilinogen Dipstick 3 A Urine Leukocytes NEGATIVE Urine WBC (Auto) <10 Urine RBC (Auto) <10 U Epithel Cells (Auto) <10 Urine Bacteria (Auto) NEGATIVE Urine Test NEGATIVE 05/15/17 15:20 WBC RBC Hgb Hct MCV MCH MCHC RDW Std Deviation Plt Count MPV Neut % (Auto) Lymph % (Auto) Isabela % (Auto) Eos % (Auto) Baso % (Auto) Neut # (Auto) Lymph # (Auto) Isabela # (Auto) Eos # (Auto) Baso # (Auto) Sodium 134 L Potassium 2.0 L* Chloride 80 L Carbon Dioxide 40 H Anion Gap 14 BUN 7 L Creatinine 1.0 H Estimated GFR/1.73 m2 > 60 BUN/Creatinine Ratio 7 Glucose 123 H Calculated Osmolality 268 Calcium 9.1 Total Bilirubin 0.86 AST 31 H ALT 16 Alkaline Phosphatase 74 Total Protein 7.0 Albumin 4.2 Globulin 2.8 Albumin/Globulin Ratio 1.5 Urine Source Urine Color Urine Turbidity Urine pH Ur Specific Maxwell Urine Protein Ur Glucose (Stick) Ur Ketones (Stick) Urine Blood Urine Nitrite Urine Bilirubin Urobilinogen Dipstick Urine Leukocytes Urine WBC (Auto) Urine RBC (Auto) U Epithel Cells (Auto) Urine Bacteria (Auto) Urine Test Orders Category Date Time Status CBC WITH DIFF [HEME] Stat Lab 05/15/17 15:20 Completed COMPREHENSIVE METABOLIC PANEL [CHEM] Stat Lab 05/15/17 15:20 Completed TEST-URINE [PREG] Stat Lab 05/15/17 15:18 Completed UA NIMS W/REFLEX CULT [URINALYSIS] Stat Lab 05/15/17 15:18 Completed Potassium Chloride E.r. [Klor-Con] Med 05/15/17 16:39 Discontinued 40 meq .ROUTE .STK-MED ONE Potassium Chloride E.r. [Klor-Con] Med 05/15/17 16:37 Discontinued 40 meq PO NOW ONE EKG [EKG] Stat Ther 05/15/17 15:14 Draft Result Diagrams: 05/15/17 15:20 05/15/17 15:20 - CONSULTS/PCP/HOSPITALIST Notification #1 *Consult/PCP/Hospitalist*: Sukumar/[facility] Time Discussed: 17:34 Consult Disposition: Will see in ED, Admit Departure - Departure Date of Disposition Decision: 05/15/17 Time of Disposition Decision: 17:35 DIAGNOSIS: Malnutrition, Hypokalemia Disposition: ADMITTED INPATIENT 09 Certified Medical Emergency: Emergent Condition: Stable Referrals and Follow-Ups: None,PCP [Primary Care Provider] - - Critical Care Note This patient required my direct & personal management of CC.: No This chart was documented by the indicated scribe, (Nilsa Lee, Jania) and accurately reflects the services I performed and decisions made by me, Soha Garzon MD, as attested by the provider's signature.
[2017-05-15] MEDS ORDERED: ATIVAN PO ONE (18:00)
[2017-05-15] MEDS ORDERED: ZOFRAN IV PRN (19:30)
--- NOTE | 2017-05-15 23:09 | HISTORY AND PHYSICAL ---
PCP: None. CHIEF COMPLAINT: Muscle cramping and lower extremity tingling. HISTORY OF PRESENT ILLNESS: Mrs. Lynn is a 21-year-old female known to our service. She has a history of chronic diarrhea. She reports that she quit abusing laxatives around a year ago but is still having 4-6 bowel movements a day. She was in the hospital for the same earlier this month and saw Dr. García with GI and opted for outpatient colonoscopy. She returns today with continued diarrhea around 4-6 bowel movements a day and symptoms of hypokalemia including muscle cramping and tingling in her fingers. Indeed, her potassium was 2.0 and the rest of her laboratory data is consistent with contraction alkalosis, her CO2 is 40. All of her other labs are essentially unremarkable. As such, we are going to admit her for further treatment and evaluation. PAST MEDICAL HISTORY: 1. Chronic diarrhea. 2. History of laxative abuse. 3. Nicotine dependence. 4. Alcohol dependence. 5. Anxiety. SURGICAL HISTORY: Tonsillectomy. SOCIAL HISTORY: Patient reports drinking 3-6 beers a day, smoking socially, denies drug use. She recently moved from [place]. FAMILY HISTORY: Brother and father have chronic diarrhea. There is history of addiction in the family as well as anxiety. REVIEW OF SYSTEMS: Fourteen-point review of systems obtained and found to be negative with the exception of the HPI. MEDICATIONS AT HOME: Aldactone 25 mg daily and KCl 40 mEq p.o. daily. ALLERGIES: Penicillin. PHYSICAL EXAMINATION: VITAL SIGNS: Blood pressure is 114/63, heart rate 75, respiratory rate 18, O2 saturation 100% on room air, temperature is 97.7 degrees. GENERAL: This is a thin bordering on cachectic appearing 21-year-old female lying in hospital bed in no acute distress. NEUROLOGIC: The patient is awake, alert, oriented. She follows commands without focal deficits. HEENT: Head atraumatic, normocephalic. Pupils equal, round, reactive to light. Oral mucosa is dry. Trachea is midline. No JVD or carotid bruits. CHEST: Clear to auscultation bilaterally. CV: Regular rate and rhythm. S1-S2 is noted. No murmurs, gallops, clicks, rubs. GI: Soft, nondistended, nontender. Bowel sounds positive. EXTREMITIES: Without edema, clubbing or cyanosis. Pulses palpable bilaterally. DIAGNOSTIC DATA: EKG sinus rhythm without acute ST or T abnormalities. WBC 4.86, hemoglobin 16, hematocrit 45, platelet count 398,000. Sodium 134, potassium 2.0, chloride 80 , CO2 40, anion gap 14, BUN 7, creatinine 1, glucose 123, calcium 9.1, AST 31, ALT 16, protein 7, urinalysis shows 600 protein, trace ketones. ASSESSMENT AND PLAN: 1. Hypokalemia: Secondary to chronic diarrhea. Will replace and follow electrolytes and telemetry. 2. Volume depletion/contraction alkalosis: Continue IV fluids. Currently hemodynamics are stable. 3. Chronic diarrhea: Dr. García has been consulted. On reviewing laboratory data done in the recent past her celiac stool studies are negative. Her ANCA is negative. Tissue transglutaminase IgA is negative. Her stool pH was within normal limits. Certainly there is a concern for continued laxative abuse however she reports not taking any laxatives for a year now. She has chronic anxiety which is untreated. We did refer her to psychotherapist of her choosing. 4. Deep vein thrombosis prophylaxis with SCDs. Further recommendations to follow. Dictated by DO Tovar for Ct Kat MD cc: DO Tovar MD The patient was seen and examined by me. I agree with the assessment and plan as dictated. [facility]
[2017-05-15] MEDS: NS 1,000 ML IV SCH (23:38)
[2017-05-16] MEDS: PROTONIX IV SCH ×2 (05:53→06:31)
[2017-05-16] MEDS ORDERED: POTASSIUM CHLORIDE 60 MEQ in NS 500 ML IV ONE (06:33)
[2017-05-16] MEDS ORDERED: SODIUM CHLORIDE 0.9% INJ SCH (07:00)
[2017-05-16 07:06] LABS: AGAP 10; BUN 5 mg/dL (8-22); CALCIUM 8.4 mg/dL (8.8-10.2); CHLORIDE 86 mmol/L (98-107); COSMO 261; SODIUM 132 mmol/L (136-145); TCO2 36 mmol/L (25-35)
--- NOTE | 2017-05-16 11:28 | PROGRESS NOTE ---
DATE: 05/16/2017 SUBJECTIVE: This patient states that she is feeling better. She is not complaining of pain, no nausea or vomiting. No dizziness. She had 4 episodes of diarrhea yesterday night and today, this morning just 1. As per the patient, she has not been taking any kind of laxative. She states that she has chronic diarrhea. She was recently hospitalized on 03/16/2017 basically for the same problem. I did talk to her dad and he told me that at that time she was recently discharged from a hospital in [place], secondary to eating disorder probably anorexia nervosa. Also she was hospitalized when she was a 16-year-old secondary to eating disorder again. OBJECTIVE: Vital Signs: Temperature 97.9 degrees, pulse 87, blood pressure 93/49, respiratory rate 16, O2 saturation 99 on room air. HEENT: Head normocephalic. No trauma. PERRLA. Neck: Supple. No JVD. No masses. Central trachea. Chest: Clear to auscultation. No wheezing. No rales. Abdomen: Soft, nontender, nondistended. No hepatosplenomegaly. Extremities: No edema. No clubbing. No cyanosis. Decreased muscle mass. Neurological: The patient is alert and oriented x3. No focal neurological deficits. LABORATORY: Sodium 132, potassium 2, chloride 86, bicarbonate 36, BUN 5, creatinine 0.7, glucose 78, calcium 8.4. ASSESSMENT AND PLAN: 1. Severe hypokalemia. We are replacing this with IV potassium. I will ask for a new BMP in the afternoon and I will replace the potassium again if this is low. 2. Chronic diarrhea. Gastroenterology has been consulted. As per the patient, she used to take a laxative but not anymore. Will continue to monitor. 3. Volume depletion with contraction alkalosis. Continue with IV fluids. Stable. 4. History of laxative abuse. Aware. 5. Alcohol dependence. As per the patient, she drinks every 2 days at least 3-4 beers. 6. Nicotine dependence. As per the patient she smokes socially. She does not buy packets of cigarettes. 7. Anxiety. Aware. 8. Eating disorder. Probably this patient has anorexia nervosa. She has been hospitalized apparently twice before for this. We do not have Psychiatry on board. We will monitor. cc: Jagdeep Redd MD
[2017-05-16] MEDS ORDERED: GOLYTELY PO ONE (14:00)
[2017-05-16] MEDS: NS 1,000 ML IV SCH ×3 (14:58→21:36)
[2017-05-16 19:28] LABS: AGAP 10; BUN 5 mg/dL (8-22); CALCIUM 8.8 mg/dL (8.8-10.2); CHLORIDE 97 mmol/L (98-107); COSMO 275; POTASSIUM 2.4 mmol/L (3.5-5.1); SODIUM 140 mmol/L (136-145); TCO2 33 mmol/L (25-35)
[2017-05-16] MEDS ORDERED: KLOR-CON PO ONE (20:01)
[2017-05-16] MEDS: POTASSIUM CHLORIDE 20 MEQ/SWI 20 MEQ/100 ML IVPB IV SCH (21:34)
[2017-05-16] MEDS: ATIVAN IV PRN (23:29)
[2017-05-17] MEDS: POTASSIUM CHLORIDE 20 MEQ/SWI 20 MEQ/100 ML IVPB IV SCH (04:10)
[2017-05-17 07:18] LABS: AGAP 10; BUN 4 mg/dL (8-22); CHLORIDE 101 mmol/L (98-107); COSMO 275; POTASSIUM 3.6 mmol/L (3.5-5.1); SODIUM 140 mmol/L (136-145); TCO2 29 mmol/L (25-35)
[2017-05-17] MEDS: PROTONIX IV SCH (10:05)
--- NOTE | 2017-05-17 11:03 | PROGRESS NOTE ---
DATE: 05/17/2017 SUBJECTIVE: This patient states that she is feeling good. She is not complaining of pain at this moment. No nausea. No vomiting. No dizziness. She has been having watery bowel movements but this is likely related to a bowel prep for a colonoscopy today. This patient is NPO for colonoscopy. OBJECTIVE: Vital Signs: Temperature 97.6 degrees, pulse 77, blood pressure 91/55, oxygen saturation 100% on room air. HEENT: Head normocephalic. No trauma. PERRLA. Neck: Supple. No JVD. No masses. Central trachea. Chest: Clear to auscultation. No wheezing. No rales. Abdomen: Soft, nontender, nondistended. No hepatosplenomegaly. Extremities: No edema. No clubbing. Decreased muscle mass. Neurological Examination: The patient is alert and oriented x3. No focal neurological deficits. Laboratory: Sodium 140, potassium 3.6, chloride 101, bicarbonate 29, BUN 4, creatinine 0.6, glucose 75, calcium 9. Magnesium 1.7. ASSESSMENT AND PLAN: 1. Severe hypokalemia, resolved. We will continue to monitor the potassium level. 2. Chronic diarrhea. Today, this patient will have a colonoscopy done. We will continue following the recommendation of gastroenterology department. 3. Volume depletion with contraction alkalosis. Continue with intravenous fluids. Stable. 4. History of laxative abuse. Aware. As per the patient, she has not been taking laxatives for at least 1 year. 5. Alcohol dependence. As per the patient, she drinks 3-4 beers every 2 days. 6. Nicotine dependence. As per the patient, she smokes socially. Apparently, she does not by packets of cigarettes. 7. Anxiety. Aware. 8. Eating disorder. Probably this patient has anorexia nervosa. This patient has been hospitalized apparently twice for this condition. We do not have psychiatry on board. We will continue to monitor. cc: Jagdeep Redd MD
[2017-05-17] MEDS: ATIVAN IV PRN (14:33)
[2017-05-17] MEDS: NS 1,000 ML IV SCH (14:36)
[2017-05-17] MEDS ORDERED: XYLOCAINE-MPF 2% ONE (14:53)
[2017-05-17] MEDS ORDERED: ZOFRAN ONE (14:53)
[2017-05-17] MEDS ORDERED: ROBINUL ONE (14:53)
[2017-05-17] MEDS ORDERED: DIPRIVAN 1% ONE (14:54)
[2017-05-17] MEDS ORDERED: FENTANYL ONE (14:54)
--- NOTE | 2017-05-17 20:27 | OPERATIVE NOTE ---
PROCEDURE DATE: 05/17/2017 PROCEDURE PERFORMED: Colonoscopy and biopsy. PROVIDER: Marvin García MD PREOPERATIVE DIAGNOSIS: Chronic diarrhea and weight loss. POSTOPERATIVE DIAGNOSES: Normal colonoscopy to check for microscopic colitis. HISTORY: This is a 21-year-old white female who was admitted to the hospital with recurrent diarrhea and electrolyte imbalances. She has lost weight as well. Endoscopy was done to identify the etiology and treat accordingly. DESCRIPTION OF PROCEDURE: Informed consent was obtained from the patient. The procedure, risks, benefits, and alternatives were explained in layman's terms. She understood and all of her pertinent questions were answered. The patient was brought to the endoscopy unit and was premedicated as per Anesthesia. After adequate sedation, while she was lying in the left lateral position, digital rectal exam was performed, which was normal. The scope was then gently introduced into the rectum and advanced under direct vision through the parts of the colon all the way up to the cecum. The cecum was identified by the ileocecal valve and appendiceal orifice. The scope was then passed through the normal ileocecal valve into the terminal ileum. About 5-8 cm of terminal ileum was examined, which was normal. The scope was withdrawn back into the cecum, back through the parts of colon, all the way up the rectum, paying careful attention to detail. The preparation was good. The visualized portion of the colon revealed normal colon mucosa throughout the colon all the way up the rectum. The rectum was examined in both straight and retroflexed view, which revealed no pathology either. Multiple random biopsies were taken using a cold biopsy forceps to check for microscopic colitis. The scope was then removed. The patient tolerated the procedure well with no complications noted. The patient was then transferred to the recovery area in stable condition. IMPRESSION: Chronic diarrhea and weight loss with normal colonoscopy. Biopsies done to check for microscopic colitis. RECOMMENDATIONS: I would start her on symptomatic treatment. Continue symptomatic treatment. Avoid milk and milk products. Follow up the biopsy report and follow up with me at the office after discharge. cc: Marvin García MD
[2017-05-17] MEDS: ZANTAC PO SCH (20:39)
[2017-05-18] MEDS: NS 1,000 ML IV SCH (02:02)
[2017-05-18 07:04] LABS: AGAP 9; BUN 5 mg/dL (8-22); CALCIUM 8.5 mg/dL (8.8-10.2); CHLORIDE 105 mmol/L (98-107); COSMO 276; POTASSIUM 3.6 mmol/L (3.5-5.1); SODIUM 140 mmol/L (136-145); TCO2 26 mmol/L (25-35)
[2017-05-18] MEDS: ZANTAC PO SCH ×3 (09:03→20:53)
--- NOTE | 2017-05-18 11:14 | PROGRESS NOTE ---
DATE: 05/18/2017 SUBJECTIVE: This patient had a colonoscopy yesterday, as per Dr. García. The colonoscopy was normal. He took some biopsies and sent it to pathology. We do not have any specific reason for her hypokalemia or diarrhea. At this point, I am not quite sure if she is taking laxative at home or diuretics. She has an a strong past medical history of eating disorders, probably anorexia and actually she has been hospitalized before for this at the age of 16. Her boyfriend is at the bedside and he states that she eats normally at home, and he believes that she is not taking any other medications for this, any other medication that can explain the hypokalemia, but he states that she has been losing weight. OBJECTIVE: Vital Signs: Temperature 97.9 degrees, pulse 66, respiratory rate 16, blood pressure 98/54, oxygen saturation 100% on room air. HEENT: Head normocephalic. No trauma. PERRLA. Neck: Supple. No JVD. No masses. Central trachea. Chest: Clear to auscultation. No wheezing. No rales. Abdomen: Soft, nontender, nondistended. No hepatosplenomegaly. Extremities: No edema. No clubbing. No cyanosis. Decreased muscle mass. Neurological Examination: The patient is alert, oriented x3. No focal neurological deficits. LABORATORY: Sodium 140, potassium 3.6, chloride 105, bicarbonate 26. BUN 5, creatinine 0.7, glucose 83, calcium 8.5, magnesium 1.6. ASSESSMENT AND PLAN: 1. Severe hypokalemia, resolved. Today this patient is not. Hypokalemic. She received potassium yesterday. She is not complaining of diarrhea today. I will monitor this patient for one more day. She has been at home with potassium and spironolactone, but I do not have any reason to continue that, since I do believe that this patient is taking something extra like diuretics or laxatives. 2. Chronic diarrhea. This patient had a colonoscopy done yesterday that did not show any abnormalities. Biopsies were taken and pending the resolved. Gastroenterology Department will follow this patient as an outpatient in about 3 weeks. 3. Volume deplete , resolved. I will stop the IV fluids today and I will continue with a full diet. 4. History of laxative abuse. As per the patient, she has not been taking laxatives for at least 1 year. 5. Alcohol and nicotine dependence. As per the patient, she drinks 3-4 beers every 2 days and she states that she smokes socially. I will continue with daily cessation education for both. 6. Anxiety, aware. 7. Eating disorder. Probably this patient has anorexia nervosa. This patient has been hospitalized before once or twice for this condition. We do not have a psychiatry doctor available. We will continue to monitor. cc: Jagdeep Redd MD MTDD
[2017-05-18] MEDS: ATIVAN IV PRN (11:17)
[2017-05-18] MEDS ORDERED: TYLENOL PO PRN (23:53)
[2017-05-19 06:50] LABS: MANUAL DIFF NEEDED? NO
[2017-05-19 06:57] LABS: BASO% 0.7 % (0.0-0.8); EOS# 0.11 X1000 (0.0-0.7); EOS% 2.5 % (0.0-10.0); HEMATOCRIT 40.6 % (37.0-47.0); HEMOGLOBIN 13.9 g/dL (12.0-16.0); LYMPH# 2.16 X1000 (1.2-3.4); LYMPH% 48.4 % (20.5-51.1); MCH 31.3 PG (27-31); MCHC 34.2 g/dL (33-37); MCV 91.4 FL (81-99); MONO# 0.24 X1000 (0.11-0.59); MONO% 5.4 % (1.7-9.3); MPV 9.5 FL (7.4-10.4); PLT 266 X1000 (130-400); RBC 4.44 XMIL (4.2-5.4)
[2017-05-19 07:15] LABS: AGAP 7; BUN 4 mg/dL (8-22); CALCIUM 8.9 mg/dL (8.8-10.2); CHLORIDE 105 mmol/L (98-107); COSMO 271; POTASSIUM 4.8 mmol/L (3.5-5.1); SODIUM 138 mmol/L (136-145); TCO2 26 mmol/L (25-35)
[2017-05-19] MEDS: ZANTAC PO SCH (09:38)
[2017-05-19 10:00] VITALS: BP 102/60
--- NOTE | 2017-05-20 15:33 | DISCHARGE SUMMARY ---
ADMISSION DATE: 05/15/2017 DISCHARGE DATE: 05/19/2017 DISCHARGE DIAGNOSES: 1. Severe hypokalemia, resolved. 2. Chronic diarrhea. 3. Volume depletion, resolved. 4. History of lack laxative abuse. 5. Alcohol abuse. 6. Nicotine dependence 7. Anxiety. 8. History of eating disorder. CONSULTATIONS: Gastroenterology Department, Dr. García. HOSPITAL COURSE: This is a 21-year-old female with a past medical history of chronic diarrhea, laxative abuse, nicotine and alcohol dependence, and anxiety. She came to the emergency department with a chief complaint of diarrhea with 4-6 bowel movement a day, and has been about that for about a year. At the emergency department, they found that this patient had hypokalemia, and muscle cramping and tingling in her fingers. Potassium level was 2. She was admitted and we corrected the potassium with IV potassium. Gastroenterology Department was consulted because of the chronic diarrhea. They did a colonoscopy that did not show any abnormality. They took some biopsies to rule out microscopic cholangitis. After correcting her potassium, she spent 2 days hospitalized just to monitor her bowel movement and her potassium levels. Her potassium was stable for the past 3 days and that is concerning because we do not know exactly if this patient is taking some kind of diuretics at home or laxative. As I mentioned before, this patient has a past medical history of eating disorder, likely anorexia nervosa. Today, I evaluated this patient. All the electrolytes and lab work was stable, and she was feeling good, so I decided to discharge this patient with strict followup by her primary care doctor and Dr. García in 3 weeks. I instructed her to call Dr. García if she started having severe diarrhea again. In the meantime, she can take Imodium. At the moment of discharge, this patient was in a stable medical condition, tolerating p.o. and ambulating. No pain. No nausea. No vomiting. No diarrhea. PHYSICAL EXAMINATION: Vital Signs: Temperature 98.2 degrees, pulse 59, respiratory rate 16, blood pressure 102/60, oxygen saturation 100% on room air. HEENT: Head normocephalic. No trauma. PERRLA. Neck: Supple. No JVD. No masses. Central trachea. Chest: Clear to auscultation. No wheezing. No rales. Abdomen: Soft, nontender, nondistended. No hepatosplenomegaly. Cardiovascular: RRR. No murmurs. Extremities: No edema. No clubbing. No cyanosis. Decreased muscle mass. Neurological: The patient was alert and oriented x3. No focal neurological deficits. LABORATORY: WBC 4.4, hemoglobin 13.9, hematocrit 40.6, platelet 266,000. Sodium 138, potassium 4.8, chloride 105, bicarbonate 26, BUN 4, creatinine 0.8, glucose 77, calcium 8.9, magnesium 1.7. DISCHARGE MEDICATIONS: The patient was instructed to take Imodium p.r.n. for diarrhea. TIME DISCHARGING THIS PATIENT: Thirty-five minutes. cc: Jagdeep Redd MD
== END 2017-05-19 11:15 | disposition home or self-care (01) ==
LOC: ED 15:05 → SUATTDRO 20:30 → 4N 20:30
PROVIDERS: ATTEND Internal Medicine

== ENCOUNTER 2017-06-13 02:20 | Inpatient (IN) ==
[2017-06-13] MEDS ORDERED: NS 1,000 ML IV ONE ×2 (02:43→05:30)
[2017-06-13] MEDS ORDERED: ZOFRAN ODT PO ONE (02:44)
[2017-06-13] MEDS ORDERED: LOMOTIL PO ONE (02:45)
--- NOTE | 2017-06-13 02:49 | PROVIDER DOCUMENTATION ---
HPI-Abdominal Pain/GI Problem - General Chief Complaint: Diarrhea Stated Complaint: LOW POTASSIUM Time Seen by Provider: 06/13/17 02:36 Source: patient Allergies/Adverse Reactions: Patient Allergies Allergy/AdvReac Type Severity Reaction Status Date / Time Penicillins AdvReac HIVES Verified 06/13/17 02:32 Home Medications: Home Medication List Medication Instructions Recorded Confirmed Last Taken Type Clindamycin [Cleocin] 300 mg PO TID #30 capsule 06/05/17 06/13/17 06/12/17 23: 00 Rx Alprazolam [Xanax] 0.5 mg PO TID 06/13/17 06/13/17 Unknown History Potassium Chloride 10% Liquid 20 meq PO DAILY 06/13/17 06/13/17 06/12/17 23:00 History Spironolactone 25 mg PO DAILY 06/13/17 06/13/17 06/12/17 23:00 History - History of Present Illness-ABD Nature of Presenting Problems: pt states hx of chronic diarrhea since November of this year and has been seeing Dr Nieves on an ongoing basis for this. She then was recently prescribed clindamycin for a dental iinfection and reports shortly afterwards that her diarrhea has gotten worse and now she feels heart palpitations and shakiness like she has had when her potassium gets low. No fever or chills. She complains of diffuse bloating discomfort and decreased urine out put but no dysuria. She has been trying immodium without help. Pt added that she no longer is taking a OTC diueritic as Dr De Guzman Rx-ed spironolactone for her Review of Systems - Adult - REVIEW OF SYSTEMS - ADULT Constitutional: reports: fatique. denies: chills, fever Eyes: denies: discharge Ears, Nose, Mouth & Throat: denies: ear pain, sinus problem, throat pain Cardiovascular: reports: palpitations. denies: chest pain, syncope Respiratory: denies: cough, shortness of breath Gastrointestinal: reports: see HPI, diarrhea, nausea. denies: hematemesis, rectal bleeding, vomiting Genitourinary: reports: dysuria, frequency, flank pain Musculoskeletal: reports: muscle aches Integumentary: denies: rash Neurological: denies: headache/migraines, numbness Psychiatric: reports: no symptoms reported Endocrine: reports: no symptoms reported Hematologic/Lymphatic: reports: no symptoms reported Allergic/Immunologic: reports: no symptoms reported All Other Systems: Reviewed and Negative Past History - Adult - PAST MEDICAL HISTORY-ADULT Review of Records: reports: Old Records Reviewed, Nursing Assessment Review, Medications Reviewed, Social history reviewed & non-contributory. Major Childhood Illnesses: reports: denies history Cardiovascular: reports: denies history Respiratory: reports: asthma Gastrointestinal: reports: IBS Obstetrical/Gynecological: reports: denies history Genitourinary: reports: denies history Musculoskeletal: reports: denies history Neurological: reports: denies history Psychiatric: reports: anxiety, other (hx of eating disorder) Endocrine/Immune: reports: denies history Other Conditions: reports: denies history - PRIOR SURGERIES/PROCEDURES Surgical/Procedure History: reports: tonsillectomy - IMMUNIZATION STATUS Childhood Immunizations: See Nurse Assessment Flu Vaccine: See Nurse Assessment - FAMILY HISTORY Family History: reviewed, not pertinent - SOCIAL HISTORY Smoking: denies Living Situation: family Physical Exam-General - PHYSICAL EXAM-ADULT Initial Vital Signs Reviewed: Yes - CONSTITUTIONAL General Appearance: appears well, alert, no apparent distress, thin - EYES Eyes: pink conjunctivae. negative: scleral icterus - HEAD, EARS, NOSE, MOUTH & THROAT HENMT: normocephalic/atraumatic, pharynx normal - NECK Neck: non-tender, full range of motion, supple, normal inspection - RESPIRATORY Respiratory: chest non-tender, lungs clear, normal breath sounds, no pleuratic chest pain, no respiratory distress, no accessory muscle use - CARDIOVASCULAR Cardiovascular: regular rate, rhythm, no edema, no murmur - GASTROINTESTINAL (ABDOMEN) Abdominal Exam: normal bowel sounds, non tender, soft, no organomegaly, no pulsatile mass - MUSCULOSKELETAL Back Exam: normal inspection, no CVA tenderness, no vertebral tenderness Extremity: non-tender, no pedal edema, no calf tenderness - SKIN Integumentary: normal color, normal turgor, warm/dry - NEUROLOGIC Neurologic: grossly normal, no motor/sensory deficits Progress - PLAN OF CARE/RESULTS Progress/Plan/Lab Results: Vital Signs - 8 hr 06/13/17 02:23 Temperature 97.5 F L Pulse Rate 75 Respiratory Rate 14 Blood Pressure 115/67 O2 Sat by Pulse Oximetry 100 Orders Category Date Time Status C DIFF TOXIN [STOOL] Stat Lab 06/13/17 02:43 Uncollected CBC WITH ELECTRONIC DIFF [HEME] Stat Lab 06/13/17 02:43 Uncollected CMP [COMPREHENSIVE METABOLIC PANEL] [CHEM] Stat Lab 06/13/17 02:43 Uncollected MAGNESIUM [CHEM] Stat Lab 06/13/17 02:43 Uncollected Diphenoxylate/Atropine [Lomotil] Med 06/13/17 02:45 Once 1 each PO NOW ONE Ns 1000 ml IV Bolus X1 Med 06/13/17 02:43 Ordered 0.9% Sodium Chloride Inj [Ns] 1,000 ml IV 999 mls/hr Ondansetron Odt [Zofran Odt] Med 06/13/17 02:44 Once 4 mg PO NOW ONE Result Diagrams: 06/13/17 02:51 06/13/17 02:51 Departure - Departure Date of Disposition Decision: 06/13/17 Time of Disposition Decision: 03:54 DIAGNOSIS: Hypokalemia, Chronic diarrhea Disposition: ADMITTED INPATIENT 09 Certified Medical Emergency: Emergent Condition: Fair Referrals and Follow-Ups: None,PCP [Primary Care Provider] - - Critical Care Note This patient required my direct & personal management of CC.: No
[2017-06-13 03:03] LABS: BASO% 0.7 % (0.0-0.8); EOS# 0.03 X1000 (0.0-0.7); EOS% 0.5 % (0.0-10.0); HEMATOCRIT 40.6 % (37.0-47.0); LYMPH# 2.61 X1000 (1.2-3.4); LYMPH% 46.4 % (20.5-51.1); MANUAL DIFF NEEDED? NO; MCH 31.3 PG (27-31); MCHC 36.9 g/dL (33-37); MCV 84.6 FL (81-99); MONO# 0.56 X1000 (0.11-0.59); MPV 8.4 FL (7.4-10.4); NEUT% 42.4 % (42.2-75.2); PLT 484 X1000 (130-400)
[2017-06-13 03:42] LABS: AGAP 14; ALBUMIN 4.3 g/dL (3.5-5.0); ALKALINE PHOSPHATASE 90 U/L (32-104); BUN 6 mg/dL (8-22); CALCIUM 9.7 mg/dL (8.8-10.2); CHLORIDE 71 mmol/L (98-107); COSMO 257; GOT 26 U/L (10-30); GPT 12 U/L (10-36); MAGNESIUM 1.9 mg/dL (1.5-2.7); SODIUM 129 mmol/L (136-145); TCO2 44 mmol/L (25-35); TOTAL BILIRUBIN 0.53 mg/dL (0.20-1.00); TOTAL PROTEIN 7.2 g/dL (6.3-8.3)
[2017-06-13 03:47] LABS: POTASSIUM 2.2 mmol/L (3.5-5.1)
[2017-06-13] MEDS ORDERED: POTASSIUM CHLORIDE 20% LIQUID PO ONE (03:48)
[2017-06-13] MEDS ORDERED: NS 1,000 ML IV SCH (05:30)
[2017-06-13] MEDS ORDERED: ZOFRAN IV PRN ×2 (05:30→05:39)
[2017-06-13] MEDS: NS 1,000 ML IV ONE ×2 (05:57→06:00)
[2017-06-13] MEDS ORDERED: POTASSIUM CHLORIDE 20 MEQ/SWI 20 MEQ/100 ML IVPB IV SCH (06:00)
[2017-06-13] MEDS: POTASSIUM CHLORIDE 20 MEQ/SWI 20 MEQ/100 ML IVPB IV SCH ×2 (06:27→06:43)
[2017-06-13] MEDS: NS 1,000 ML IV SCH ×2 (06:27→17:17)
[2017-06-13 07:42] LABS: URINE CULTURE NEEDED? NO; URINE MICRO REVIEW NEEDED? NO; URINE SOURCE CLEAN CATCH
[2017-06-13 07:47] LABS: BILIRUBIN URINE NEGATIVE (NEGATIVE); BLOOD URINE NEGATIVE (NEGATIVE); COLOR YELLOW; GLUCOSE URINE NEGATIVE (NEGATIVE); LEUKOCYTES URINE NEGATIVE (NEGATIVE); NITRITE URINE NEGATIVE (NEGATIVE); PH URINE 8.5; PROTEIN URINE NEGATIVE (NEGATIVE); SP GRAVITY URINE 1.004; TURBIDITY URINE CLEAR (CLEAR); UROBILINOGEN URINE NORMAL (NORMAL)
[2017-06-13 07:48] LABS: UR EPITHELIAL CELLS <10 /HPF (<10); URINE BACTERIA 1+ /HPF; URINE RBC <10 /HPF (<10); URINE WBC <10 /HPF (<10)
[2017-06-13] MEDS: XANAX PO SCH ×2 (08:02→20:34)
[2017-06-13] MEDS: POTASSIUM CHLORIDE 40 MEQ in NS 250 ML IV SCH ×2 (08:05→19:40)
[2017-06-13] MEDS ORDERED: POTASSIUM CHLORIDE 10% LIQUID PO SCH (09:00)
[2017-06-13] MEDS: POTASSIUM CHLORIDE 10% LIQUID PO SCH (09:06)
--- NOTE | 2017-06-13 13:17 | HISTORY AND PHYSICAL ---
PRIMARY CARE PROVIDER: None. GI SPECIALIST: Dr. García. CHIEF COMPLAINT: Diarrhea, feels as if she has low potassium. HISTORY OF PRESENT ILLNESS: Ms. Lynn is a 22-year-old, female who is well known to our service. She has a history of chronic diarrhea. She had a problem abusing laxatives and quit around year ago but still has 4-6 bowel movements daily. She recently had an abscess in her mouth and was given clindamycin by an ER provider which caused her to have more diarrhea. She is known to have hypokalemia causing muscle cramping and tingling in her fingers as well as heart palpitations and shaking that makes her feel like her potassium is low. She had complained of diffuse bloating discomfort and decreased urine output but denied dysuria. She has been taking Imodium and it has not helped. She was apparently given spironolactone at some point to help hold her potassium up however being a diuretic it has not helped her volume depletion from chronic diarrhea. On arrival laboratory data was drawn and she was found to be quite hypokalemic with her potassium being 2.2. She had a sodium of 129 and a creatinine of 1.1. Her CO2 was noted on her chemistry panel to be 44. It is likely because she is very fluid volume depleted. No ABG was obtained but the patient is likely alkalotic. She will be admitted to the medical floor for further evaluation and treatment. PAST MEDICAL HISTORY: 1. Chronic diarrhea. 2. History of laxative abuse. 3. History of eating disorder. 4. Nicotine abuse. 5. Alcohol dependence. 6. Anxiety. PREVIOUS SURGICAL HISTORY: Tonsillectomy and endoscopy or colonoscopy. SOCIAL HISTORY: In the past has drank 3-6 beers a day. States she has cut back. Smokes socially. Denies illicit drug use. States that she is no longer taking laxatives. Recently moved from [place]. FAMILY HISTORY: Father and brother have chronic diarrhea. History of addiction and anxiety in the family. HOME MEDICATIONS: 1. Clindamycin 300 mg p.o. t.i.d. 2. Xanax 0.5 mg p.o. b.i.d. 3. Aldactone 25 mg p.o. daily. 4. Potassium chloride 20 mEq p.o. daily. ALLERGY: To penicillin. REVIEW OF SYSTEMS: Fourteen point review of systems conducted with the patient. Pertinent positives listed above in the HPI. All other systems reviewed and found to be negative. PHYSICAL EXAMINATION: VITAL SIGNS: Temperature 97.6 degrees, pulse 63, respiration 18, blood pressure 187/48, oxygen saturation 99% on room air. GENERAL: A very frail 22-year-old, female who is lying in the medical floor bed. She is borderline cachectic appearing. She appears to have muscle wasting due to her condition but is in no acute distress. HEENT: Head is atraumatic, normocephalic. Pupils equal, round, reactive to light. Extraocular eye movement intact. Mild temporal wasting noted. Sclerae is anicteric. Conjunctivae is pink. Oral mucosa is dry, lips are chapped. NECK: Supple. Trachea is midline. No JVD. No thyromegaly. Trachea is midline. No cervical lymphadenopathy. CARDIAC: S1, S2 appreciated. No murmurs, gallops, rubs. Regular rhythm. LUNGS: Clear to auscultation bilaterally. No rhonchi, wheezes or rales. Symmetrical rise and fall respirations. ABDOMEN: Soft, nondistended, nontender. Bowel sounds present in all 4 quadrants. Hyperactive. No pulsatile mass. No organomegaly. EXTREMITIES: No clubbing, cyanosis, edema. 1+ pedal pulses bilaterally. GENITOURINARY: The patient voids. Otherwise deferred. NEUROLOGICAL: Alert and oriented x3. Cranial nerves 2-12 grossly intact. LABORATORY DATA: CBC within normal limits. Sodium 129, potassium 2.2, chloride 71, carbon dioxide 44. BUN 6, creatinine 1.1 and glucose 108. ASSESSMENT AND PLAN: 1. Chronic diarrhea as noted above. The patient has had problems with this. Will consult Dr. García. She has recently been on clindamycin. Will check a C. difficile toxin. She has had laboratory data in the past that ruled out celiac disease. Her ANCA is negative. Tissue transglutaminase IgA is negative. She denies continued laxative abuse. Will hope that Dr. García can help us out with more long-term treatment. 2. Hypokalemia secondary to #1. Will aggressively replete electrolytes and monitor and recheck potassium and place patient on telemetry. 3. Hyponatremia secondary to volume depletion. Fluid bolusing was given in the emergency room. We will give an additional bolus of 1 L saline and start on saline at 100 mL an hour. 4. Hypotension. Patient's MAP is 56. If fluid bolusing does not elevate her MAP above 60 we will consider transfer to ICU for pressors until fluid bolusing is completed. 5. Acute kidney injury second to volume depletion. The patient continues to have a normal GFR. Hopeful this will return with the fluid bolusing. Further recommendations per patient clinical course. Dictated by DO Brink for Diogo Romero MD cc: DO Brink MD pt examined, chart reviewed, agree with above APENOT MTDD
--- NOTE | 2017-06-13 15:15 | PROGRESS NOTE ---
DATE: 06/13/2017 SUBJECTIVE: Today Ms. Lynn refers to be doing a little better. Ms. Lynn came in because of diarrhea, generalized weakness. Potassium was found to be 2.2 on admission. OBJECTIVE: Vital signs: Blood pressure is 187/48, pulse is 63, respirations 18, temperature is 97.6 degrees. General exam: Ms. Lynn is a is a 22-year-old, female. She is in bed. Looks underweight. HEENT: Mucosa is pink and moist. Eyes are slightly with conjunctival injection. Cardiovascular: Regular rate and rhythm. Abdomen: Soft, nontender. Extremities: No pedal edema. INTERNATIONAL PROJECT MANAGER: Patient is awake and alert and oriented. There is no focal neurological deficit. LABORATORY DATA: 1. WBC is 5.63, hemoglobin is 15.1, platelet count of 484. 2. Sodium is 129, potassium is 2.2, chloride is 71, bicarbonate is 44. 3. TSH is 1.73. ASSESSMENT: 1. Chronic diarrhea, etiology is unclear. The patient is being followed up by Dr. García. Colonoscopy in the past has been done which only showed the possibility of a chronic inflammation. Etiology is not apparently clear. The patient is being evaluated I think in [facility] for possible inflammatory bowel disease. 2. Electrolyte imbalance including hyponatremia and hypopotassemia. Will continue to replace this. 3. Metabolic alkalosis with low potassium and low sodium. These pictures are consistent with possibility of renal disease. The potassium in the urine was actually 68.0 which is consistent with the fact that even in spite of low potassium in the serum, the urine is high. So, I am suspecting patient is probably taking some diuretic that is causing this electrolyte and acid-base abnormality. 4. Undernourished likely due to possible underlying eating disorder (anorexia nervosa). However, patient denies many of the guzmán symptoms of this. 5. Volume depletion. Will continue to hydrate the patient. cc: Tristan Martin MD
[2017-06-14] MEDS ORDERED: NEO-SYNEPHRINE 50 MG in NS 250 ML IV SCH (05:11)
[2017-06-14] MEDS ORDERED: NS 1,000 ML IV ONE (05:11)
[2017-06-14] MEDS: NS 1,000 ML IV SCH ×4 (05:53→20:11)
[2017-06-14 07:36] LABS: MANUAL DIFF NEEDED? NO
[2017-06-14 08:06] LABS: AGAP 12; BUN 3 mg/dL (8-22); CALCIUM 8.1 mg/dL (8.8-10.2); CHLORIDE 95 mmol/L (98-107); COSMO 271; POTASSIUM 3.1 mmol/L (3.5-5.1); SODIUM 137 mmol/L (136-145); TCO2 30 mmol/L (25-35)
[2017-06-14] MEDS: POTASSIUM CHLORIDE 10% LIQUID PO SCH (08:06)
[2017-06-14] MEDS: XANAX PO SCH ×2 (08:06→20:11)
[2017-06-14 08:10] LABS: EOS# 0.05 X1000 (0.0-0.7); EOS% 1.2 % (0.0-10.0); HEMATOCRIT 34.4 % (37.0-47.0); HEMOGLOBIN 11.9 g/dL (12.0-16.0); LYMPH# 2.39 X1000 (1.2-3.4); LYMPH% 58.4 % (20.5-51.1); MCH 31.1 PG (27-31); MCHC 34.6 g/dL (33-37); MCV 89.8 FL (81-99); MONO# 0.25 X1000 (0.11-0.59); MONO% 6.1 % (1.7-9.3); MPV 8.6 FL (7.4-10.4); NEUT% 33.3 % (42.2-75.2); PLT 315 X1000 (130-400); RBC 3.83 XMIL (4.2-5.4)
[2017-06-14] MEDS: PRILOSEC PO SCH (09:51)
[2017-06-14] MEDS ORDERED: POTASSIUM CHLORIDE 20% LIQUID PO ONE (10:27)
--- NOTE | 2017-06-14 10:50 | PROGRESS NOTE ---
DATE: 06/14/2017 SUBJECTIVE: Today, Ms. Lynn referred to be doing fine. I understand last night. he was sleepy and the check on her blood pressure was low, so they had to move her from the regular floor to the ICU. According to the patient, she was completely asymptomatic. OBJECTIVE: Ms. Lynn is a 22-year-old, female. She is in bed, does not seems to be in any remarkable distress. HEENT: Mucosa is pink and moist. Anicteric. Acyanotic. Neck is supple. Chest: Good air entry bilaterally. No crepitations. No rhonchi. Cardiovascular: Regular rate and rhythm. Abdomen is soft, nontender. Extremities: No pedal edema. VOIP TECHNICIAN: The patient is awake, alert, and oriented. There is no focal neurological deficit. LABORATORY DATA: WBC is 4.09, hemoglobin is 11.9, platelet count of 315,000. Chemistry is reviewed. Sodium is 137, potassium is 3.1, chloride 95, bicarb is down to 30. ASSESSMENT: 1. Chronic diarrhea, etiology is unclear. We think it is probably due to laxative that the patient was abusing in the past; however, colonoscopy also showed chronic inflammation, and there is a plan for the patient to follow up with [facility] for possible inflammatory bowel disease. 2. Electrolyte imbalance (hyponatremia, hypokalemia and alkalosis.) we think this is related to drug side effects; most likely, a diuretic, however, the patient denies using Lasix or any diuretic recently except for spironolactone. 3. Metabolic alkalosis. With low-potassium, patient's urine also showing high potassium and high chloride which is consistent with the fact that she is spilling those electrolytes in her urine as well, and I think it is more consistent with the fact that she is probably abusing a diuretic. 4. Under nourished likely due to possible underlying eating disorder (anorexia nervosa versus bulimia.) Patient denies symptoms. 5. Volume depletion. Will continue to hydrate the patient. 6. Hypotension likely from volume depletion. The patient is getting gentle hydration. Of note, her blood pressure has always been on the lower end. She does not have any pulse response, we will do a cortisol level just for the completion of the workup. We will move the patient from the ICU to regular room and, hopefully, will be able to discharge her soon. cc: Tristan Martin MD MTDD
--- NOTE | 2017-06-14 13:25 | PROGRESS NOTE ---
DATE: 06/14/2017 SUBJECTIVE: The patient denies any complaints. She was transferred to the ICU during the night because of a low blood pressure. She does run a low blood pressure historically. She denied any significant symptoms. No reported dizziness or lightheadedness. No reported chest pain. OBJECTIVE: Vital Signs: Temperature 97.2 degrees, pulse 59, respirations 12, blood pressure 84/52. DIAGNOSTIC RESULTS: Laboratory hematology: White count 4.09, hemoglobin 11.9, hematocrit 34.4, MCV 89.8, platelets 315,000. Chemistry: Sodium 137, potassium 3.1, chloride 95, CO2 30, BUN 3, creatinine 0.7, glucose 105. ASSESSMENT AND PLAN: 1. Chronic diarrhea. 2. History of laxative abuse in the past. 3. Electrolyte imbalance, hyponatremia, hypokalemia with replacement. 4. Hypotension. 5. She has had normal colonoscopy with pathology showing some inflammation in the colon with occasional lymphoid aggregates. Stool studies were negative for C. difficile. We will start prednisone 30 mg daily for the inflammation in the colon and see if this helps with her diarrhea. She was actually supposed to be seen as an outpatient in the office today. I have asked her once discharged to reschedule her office visit. We had also recommended she start Uceris and had some samples for her in the office. Once discharged she can come by the office and oil change technician to Uceris samples instead of prednisone. Will follow as an outpatient and further plans or further workup will be made as needed. Patient voices understanding. Dictated by DO Agustin for Marvin García MD cc: DO Nye MD
[2017-06-15] MEDS: NS 1,000 ML IV SCH ×2 (01:07→06:09)
[2017-06-15] MEDS: PRILOSEC PO SCH (06:10)
[2017-06-15 06:58] LABS: AGAP 9; BUN 2 mg/dL (8-22); CALCIUM 8.7 mg/dL (8.8-10.2); CHLORIDE 100 mmol/L (98-107); COSMO 273; POTASSIUM 3.4 mmol/L (3.5-5.1); SODIUM 139 mmol/L (136-145); TCO2 30 mmol/L (25-35)
[2017-06-15] MEDS ORDERED: PRILOSEC PO SCH (07:00)
[2017-06-15] MEDS ORDERED: KLOR-CON PO ONE (08:32)
[2017-06-15] MEDS ORDERED: PREDNISONE PO SCH (09:00)
[2017-06-15] MEDS: XANAX PO SCH (09:14)
[2017-06-15] MEDS: POTASSIUM CHLORIDE 10% LIQUID PO SCH (09:18)
[2017-06-15 09:37] VITALS: BP 87/43
--- NOTE | 2017-06-15 10:47 | PROGRESS NOTE ---
DATE: 06/15/2017 SUBJECTIVE: Today Ms. Lynn referred to be doing fine. She says she had multiple bowel movements yesterday. Meanwhile only 2 were documented in the system and only 1 was documented the day before. According to her, she has had 1 bowel movement today, but this has not been documented. OBJECTIVE: Vital signs: Blood pressure is 87/43 pulse of 62, respirations 14 and temperature is 98.2 degrees. General exam: Ms. Lynn is a 22-year-old, female. She is in bed, not in any distress. She put on her makeup with extended eyelashes and all that. Looks very well dressed to be in hospital. Chest: Clear. Cardiovascular: Regular rate and rhythm. Abdomen: Soft, nontender. Extremities: No pedal edema. 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 There is no focal neurological deficit. LABORATORY DATA: 1. Sodium is 139, potassium is 3.4, chloride is 100, bicarbonate is 30. 2. BUN is 9, creatinine is 0.7. Patient's cortisol level was 14.4 which was okay. 3. So far, stool studies show C. difficile negative. There is no enteric pathogen found in the culture and stool WBC was nil. ASSESSMENT: 1. Chronic diarrhea, etiology is unclear. We think the patient has been abusing laxatives. According to her, she used to abuse these before, but she is not doing that any longer. The previous colonoscopy has shown some chronic inflammation in the biopsy report. Patient will follow up with Dr. García. Yesterday I think there was a plan from the GI team to start her on prednisone and start her on Uceris at home, but she prefers not to take the prednisone now. She would prefer to go to Dr. García's office and get the Uceris instead. So , she declined to take the pills this morning. 2. Electrolyte imbalance, including hyponatremia, hypokalemia, and metabolic alkalosis. These have all been resolved. We think they are related to drug side effects and we suspecting Lasix. However, patient denies. 3. Undernourished likely due to possible underlying eating disorder (anorexia nervosa versus bulimia); however patient denies any symptoms. 4. Volume depletion, improved. 5. Hypotension likely from volume depletion and medications. This is improved. However, patient has a baseline low blood pressure. She is completely asymptomatic and I think she is okay to go home. 6. Depression. According to the patient, she thinks she is a little depressed associated with work, but she does not want to take any pills. She will prefer to go and see a counselor. Already, she said there is some arrangement at her workplace to see counselor. So, we advised and stressed the importance for her to see a counselor/a psychiatrist , and the need for her to stop abusing any medications since this seems to be messing up her electrolytes and creating medical problems for her. PLAN: In general, Ms. Lynn seems to be doing fine. So, Ms. Lynn will be discharged today. We will follow up with Dr. García and a counselor. cc: Tristan Martin MD MTDD
--- NOTE | 2017-06-15 18:37 | DISCHARGE SUMMARY ---
ADMISSION DATE: 06/13/2017 DISCHARGE DATE: 06/15/2017 CONSULTATIONS: Marvin García MD with Gastroenterology. PERTINENT PROCEDURES: None. DISCHARGE DIAGNOSES: 1. Chronic diarrhea of unclear etiology. The patient had a normal colonoscopy with pathology showing some inflammation in the colon with occasional lymphoid aggregates. Stool studies were negative for Clostridium difficile. The patient was started on prednisone for inflammation in the colon to see if that helps with her diarrhea. Once discharged she will need to reschedule an office visit with Dr. García and at that time they recommend she start Uceris and they have samples for her in the office. They have further plans for workup in their clinic. Stable. 2. Electrolyte imbalance including hyponatremia, hypokalemia, metabolic alkalosis. They have all been resolved. They suspect the patient has been abusing laxatives as well as Lasix, however, the patient does deny. 3. Undernourished likely due to possibility of underlying eating disorder, anorexia nervosa versus bulimia, however, the patient denies. 4. Volume depletion. Improved. 5. Hypotension likely from volume depletion and medications, improved. However , her baseline blood pressures are low. She has remained completely asymptomatic. 6. Depression. The patient feels she is depressed associated with work and she has arrangements at her workplace to see a counselor. We have advised her to stop abusing any medications since this seems to be causing her electrolyte imbalances and creating medical problems for her. HOSPITAL COURSE: Ms. Lynn is a 22-year-old female known to our service with a history of chronic diarrhea and problem of using laxatives around a year ago but still has 4-6 bowel movements daily. She recently had an abscess in her mouth and was given clindamycin by an ER provider which caused her to have more diarrhea. She is known to have hypokalemia causing muscle cramping and tingling in her fingers as well as heart palpitations and shaking that makes her feel like her potassium is low. She complains of diffuse bloating and decreased urine output but denies dysuria. She has been taking Imodium without any relief. At some point she had been given spirlactone to help with her potassium, however, being a diuretic it did not help with her volume depletion from chronic diarrhea. Her laboratory data was found to be quite hypokalemic with her potassium being 2.2. Her sodium was 129 with a creatinine of 1.2. Her CO2 was noted to be 44. GI was consulted. C. diff toxin was negative. Blood cultures were negative. Her electrolytes were replenished. She was adequately hydrated and monitored in the ICU overnight given her hypotension , however, the patient did remain completely asymptomatic. She was moved to a regular room. The patient does run a low blood pressure historically. GI started her on prednisone to see if that would help improve her diarrhea. She was supposed to see them as outpatient in the office. They did ask that when she was discharged that she reschedule her visit and that she start Uceris and they have samples for her in their office, and once she was discharged she could come by the office and pick those samples up instead of taking prednisone; and they had further workup that they would do with her on an outpatient basis. She still denies abusing any laxatives or diuretics. She still complained of multiple bowel movements. However, throughout her admission she only had a total of 3 bowel movements documented. She also denied any underlying eating disorders. According to the patient she does feel that she is a little depressed associated with her work. She stated she did not want to take any pills. She preferred to talk with a counselor and she has already made arrangements through her workplace to see a counselor. Again she was educated to stop abusing any medications since this seems to be messing up her electrolytes and creating medical problems for her. She will be discharged today. VITAL SIGNS ON DISCHARGE: Temperature is 97.7 degrees, heart rate 52, respiration 17, blood pressure 70/40, O2 is 97% on room air. Throughout her admission her blood pressures were anywhere from 60s/40s to 70s, 80s, and 90s/40s to 60s. DISCHARGE DIET: Regular. DISCHARGE MEDICATIONS: 1. Xanax 0.5 mg p.o. b.i.d. 2. Prilosec 20 mg p.o. daily. 3. Potassium liquid 40 mEq p.o. daily. 4. Prednisone 30 mg p.o. daily. FOLLOWUP: The patient is being discharged home. She will follow up in Dr. García's office as he has instructed. She will need to find a primary care physician and follow up in 7-10 days. Patient can return to the ED for any worsening of symptoms. DISCHARGE TIME: 30 minutes. Dictated by DO Infante for Tristan Martin MD cc: Tristan Martin MD [facility] HOSPITALReginaldo
== END 2017-06-15 13:02 | disposition home or self-care (01) ==
LOC: ED 02:20 → SUATTDRO 04:46 → 3N 04:46 → ICU 06-14 05:03 → 3N 06-14 12:41
PROVIDERS: ATTEND Internal Medicine

== ENCOUNTER 2017-06-30 12:59 | Observation (INO) ==
[2017-06-30] MEDS ORDERED: SODIUM CHLORIDE 0.9% INJ ONE (13:28)
[2017-06-30] MEDS ORDERED: PHENERGAN IV ONE (13:28)
--- NOTE | 2017-06-30 13:28 | PROVIDER DOCUMENTATION ---
HPI-Abdominal Pain/GI Problem - General Chief Complaint: N/V/D Stated Complaint: recheck Time Seen by Provider: 06/30/17 13:09 Source: patient Allergies/Adverse Reactions: Patient Allergies Allergy/AdvReac Type Severity Reaction Status Date / Time Penicillins Allergy hives, Verified 06/30/17 13:35 chest heaviness Home Medications: Home Medication List Medication Instructions Recorded Confirmed Last Taken Type Alprazolam [Xanax] 0.5 mg PO BID 06/13/17 06/30/17 06/28/17 23:30 History Potassium Chloride 10% Liquid 40 meq PO DAILY udc 06/15/17 06/30/17 06/28/17 20 :00 Rx Ondansetron Odt [Zofran 4 mg Odt] 4 mg PO Q6H PRN PRN #30 tablet 06/22/1706/28/17 09:00 Rx - History of Present Illness-ABD Nature of Presenting Problems: 22 year old thin, emaciated WF presents with c/o nausea, vomiting and diarrhea. pt reports the diarrhea has been greater than 10 times a day for 8months. she has been evaluated by GI and told she has inflammation in her GI system. pt reports the nausea/vomiting has been intermittent for months as well. she reports the emesis is yellow/green without blood. pt reports she came to the ED because she felt like she was going to pass out with associated dizziness, lightheadedness with walking this afternoon. this is the patients 5th visit in 10 days for NVD, hypokalemia. Abdominal Pain Onset Location: reports: generalized abdomen Quality of Pain: reports: aching, dull Severity in ED: reports: mild Onset/Duration: reports: other (see HPI) Timing: reports: still present, intermittent, getting worse Activities at Onset: reports: other (see HPI) Associated Symptoms: reports: diarrhea, loss of appetite, nausea, vomiting Last BM: this morning Dark Stools Present?: reports: none noticed. denies: maroon, black, tarry, bright red blood, other Rectal Bleeding: reports: none. denies: bleeding without stool, bright red blood on paper, blood mixed with stool, blood streaks on stool, bloody diarrhea , other # of Diarrhea Episodes: 10 (last 24 hours) Rectal Pain: reports: none. denies: known anal fissure(s), known hemorrhoids, fistula, abscess, r/t intercourse, r/t foreign body, other # of Vomiting Episodes: 10 Emesis Description: reports: clear Bruising or Bleeding Gums?: No Similar Symptoms Previously?: Yes Recently seen or treated by another doctor?: Yes Review of Systems - Adult - REVIEW OF SYSTEMS - ADULT Constitutional: reports: no symptoms reported. denies: chills, fever, fatique Eyes: reports: no symptoms reported. denies: discharge, blurred vision, double vision Ears, Nose, Mouth & Throat: reports: no symptoms reported. denies: ear discharge, ear pain, nose pain, loose teeth, throat pain, throat swelling Cardiovascular: reports: no symptoms reported. denies: chest pain, palpitations Respiratory: reports: no symptoms reported. denies: chronic cough, cough, shortness of breath, wheezing Gastrointestinal: reports: see HPI, abdominal pain, diarrhea, nausea, poor appetite, vomiting. denies: hematemesis, constipation, difficulty swallowing, frequent heartburn, rectal bleeding Genitourinary: reports: no symptoms reported. denies: dysuria, hematuria, urgency Musculoskeletal: reports: no symptoms reported. denies: bone pain, joint pain, joint swelling Integumentary: reports: no symptoms reported. denies: hives, itching, skin sores/ulcer Neurological: reports: no symptoms reported. denies: ataxia, numbness, paresthesia Psychiatric: reports: see HPI, other Endocrine: reports: no symptoms reported Hematologic/Lymphatic: reports: no symptoms reported Allergic/Immunologic: reports: no symptoms reported All Other Systems: Reviewed and Negative Past History - Adult - PAST MEDICAL HISTORY-ADULT Review of Records: reports: Old Records Reviewed, Nursing Assessment Review, Medications Reviewed, Social history reviewed & non-contributory. Major Childhood Illnesses: reports: denies history Cardiovascular: reports: denies history Respiratory: reports: asthma Gastrointestinal: reports: IBS, other (chronic diarrhea, nausea, vomiting) Obstetrical/Gynecological: reports: denies history Genitourinary: reports: denies history Musculoskeletal: reports: denies history Neurological: reports: denies history Psychiatric: reports: anxiety, other (hx of eating disorder; bulemia, anorexia, diuretic abuse, laxative abuse) Endocrine/Immune: reports: other (hypokalemia) Other Conditions: reports: other (hypokalemia) - PRIOR SURGERIES/PROCEDURES Surgical/Procedure History: reports: tonsillectomy - IMMUNIZATION STATUS Childhood Immunizations: See Nurse Assessment Flu Vaccine: See Nurse Assessment - FAMILY HISTORY Family History: reviewed, not pertinent - SOCIAL HISTORY Smoking: denies, quit less than 1 year Substance Use: alcohol Alcohol Use Frequency: twice a week Number of drinks per typical drinking period:: 5-10 drinks Living Situation: family Physical Exam-General - PHYSICAL EXAM-ADULT Initial Vital Signs Reviewed: Yes - CONSTITUTIONAL General Appearance: appears well, alert, no apparent distress, cachetic, thin. negative: mild distress, moderate distress, severe distress - EYES Eyes: pink conjunctivae, sunken eyes - HEAD, EARS, NOSE, MOUTH & THROAT HENMT: normocephalic/atraumatic, moist mucous membranes - NECK Neck: non-tender, full range of motion, supple, normal inspection. negative: C- spine tenderness, limited range of motion, tender lateral, tender midline - RESPIRATORY Respiratory: chest non-tender, lungs clear, normal breath sounds, no pleuratic chest pain, no respiratory distress, no accessory muscle use. negative: respiratory distress, decreased breath sounds, accessory muscle use, crackles, rales, rhonchi, stridor, wheezing - CARDIOVASCULAR Cardiovascular: normal peripheral pulses, regular rate, rhythm - GASTROINTESTINAL (ABDOMEN) Abdominal Exam: normal bowel sounds, non tender, soft. negative: distended, guarding, rigid, rebound, tenderness, hernia, mass, hepatomegaly, spleenomegaly , McBurney's point tenderness, Hanson's sign, obturator sign, psoas, Rovsing's sign - MUSCULOSKELETAL Back Exam: normal inspection, no CVA tenderness, no vertebral tenderness. negative: CVA tenderness, decreased range of motion, swelling, vertebral tenderness Extremity: normal range of motion, non-tender, normal gait, normal inspection, no pedal edema, no calf tenderness, normal capillary refill. negative: deformity, erythema, swelling, tenderness Peripheral Pulses: radial (R): 3+, radial (L): 3+, dorsalis-pedis (R): 3+, dorsalis-pedis (L): 3+ - SKIN Integumentary: normal color, normal turgor, warm/dry - NEUROLOGIC Neurologic: grossly normal, no motor/sensory deficits - PSYCHIATRIC Psych/Mental Status: normal mood/affect, normal thought content, normal thought process, oriented x 3 Progress - PLAN OF CARE/RESULTS Progress/Plan/Lab Results: Vital Signs - 8 hr 06/30/17 13:01 Temperature 97.7 F Pulse Rate 58 L Respiratory Rate 18 Blood Pressure 103/59 O2 Sat by Pulse Oximetry 100 Orders Category Date Time Status ED: Urine Bedside ORDERED Care 06/30/17 13:27 Ordered Saline Loc DIRECTED Care 06/30/17 13:27 Ordered AMYLASE [CHEM] Stat Lab 06/30/17 13:27 Uncollected CBC WITH ELECTRONIC DIFF [HEME] Stat Lab 06/30/17 13:27 Uncollected COMPREHENSIVE METABOLIC PANEL [CHEM] Stat Lab 06/30/17 13:27 Uncollected LIPASE [CHEM] Stat Lab 06/30/17 13:27 Uncollected URINALYSIS W/POSS RFLX CULT-1 [URINALYSIS] Stat Lab 06/30/17 13:27 Uncollected Promethazine [Phenergan] Med 06/30/17 13:28 Once 6.25 mg IV NOW ONE Sodium Chloride 0.9% Med 06/30/17 13:28 Once 10 ml INJ NOW ONE Laboratory Tests 06/30/17 06/30/17 06/30/17 14:04 14:04 14:40 WBC 3.84 L RBC 4.39 Hgb 13.8 Hct 39.4 MCV 89.7 MCH 31.4 H MCHC 35.0 RDW Std Deviation 12.6 Plt Count 345 MPV 8.9 Immature Gran % (Auto) 0.0 Neut % (Auto) 48.1 Lymph % (Auto) 43.0 Cocke % (Auto) 7.3 Eos % (Auto) 0.8 Baso % (Auto) 0.8 Immature Gran # (Auto) 0.00 Neut # (Auto) 1.85 Lymph # (Auto) 1.65 Cocke # (Auto) 0.28 Eos # (Auto) 0.03 Baso # (Auto) 0.03 Sodium 137 Potassium 2.6 L D Chloride 89 L Carbon Dioxide 27 Anion Gap 21 BUN 5 L Creatinine 1.0 H Estimated GFR/1.73 m2 > 60 BUN/Creatinine Ratio 5 Glucose 80 Calculated Osmolality 270 Calcium 9.4 Total Bilirubin 0.81 AST 23 ALT 11 Alkaline Phosphatase 80 Total Protein 7.1 Albumin 4.3 Globulin 2.8 Albumin/Globulin Ratio 1.5 Amylase 150 Lipase 28 Urine Source CLEAN CATCH Urine Color YELLOW Urine Turbidity CLEAR Urine pH 8.5 Ur Specific [place] 1.009 Urine Protein 30 A Ur Glucose (Stick) NEGATIVE Ur Ketones (Stick) NEGATIVE Urine Blood NEGATIVE Urine Nitrite NEGATIVE Urine Bilirubin NEGATIVE Urobilinogen Dipstick NORMAL Urine Leukocytes NEGATIVE Urine WBC (Auto) <10 Urine RBC (Auto) <10 U Epithel Cells (Auto) <10 Urine Bacteria (Auto) NEGATIVE Urine Test 06/30/17 14:40 WBC RBC Hgb Hct MCV MCH MCHC RDW Std Deviation Plt Count MPV Immature Gran % (Auto) Neut % (Auto) Lymph % (Auto) [place] % (Auto) Eos % (Auto) Baso % (Auto) Immature Gran # (Auto) Neut # (Auto) Lymph # (Auto) [place] # (Auto) Eos # (Auto) Baso # (Auto) Sodium Potassium Chloride Carbon Dioxide Anion Gap BUN Creatinine Estimated GFR/1.73 m2 BUN/Creatinine Ratio Glucose Calculated Osmolality Calcium Total Bilirubin AST ALT Alkaline Phosphatase Total Protein Albumin Globulin Albumin/Globulin Ratio Amylase Lipase Urine Source Urine Color Urine Turbidity Urine pH Ur Specific [place] Urine Protein Ur Glucose (Stick) Ur Ketones (Stick) Urine Blood Urine Nitrite Urine Bilirubin Urobilinogen Dipstick Urine Leukocytes Urine WBC (Auto) Urine RBC (Auto) U Epithel Cells (Auto) Urine Bacteria (Auto) Urine Test NEGATIVE Orders Category Date Time Status ED: Urine Bedside ORDERED Care 06/30/17 13:27 Active Saline Loc DIRECTED Care 06/30/17 13:27 Active AMYLASE [CHEM] Stat Lab 06/30/17 14:04 Completed CBC WITH ELECTRONIC DIFF [HEME] Stat Lab 06/30/17 14:04 Completed COMPREHENSIVE METABOLIC PANEL [CHEM] Stat Lab 06/30/17 14:04 Completed LIPASE [CHEM] Stat Lab 06/30/17 14:04 Completed TEST-URINE [PREG] Stat Lab 06/30/17 14:40 Completed UR POTASSIUM [URCHEM] Stat Lab 06/30/17 15:43 Ordered URINALYSIS W/POSS RFLX CULT-1 [URINALYSIS] Stat Lab 06/30/17 14:40 Completed Potassium Chloride 20% Liquid Med 06/30/17 15:43 Once 40 meq PO NOW ONE Promethazine [Phenergan] Med 06/30/17 13:28 Discontinued 6.25 mg IV NOW ONE Sodium Chloride 0.9% Med 06/30/17 13:28 Discontinued 10 ml INJ NOW ONE Vital Signs - 24 hr 06/30/17 13:01 06/30/17 14:55 Temperature 97.7 F Pulse Rate 58 L 50 L Respiratory Rate 18 Blood Pressure 103/59 89/62 O2 Sat by Pulse Oximetry 100 100 Reviewed lab, H&P with Dr. Jain, recommends admission since this is the 5th visit in 8 days for NVD. Result Diagrams: 06/30/17 14:04 06/30/17 14:04 - CONSULTS/PCP/HOSPITALIST Notification #1 *Consult/PCP/Hospitalist*: [place] Time Discussed: 15:50 Reason/Comments: Dr. Rao attending Consult Disposition: Will see in ED, Admit Departure - Departure Date of Disposition Decision: 06/30/17 Time of Disposition Decision: 15:48 DIAGNOSIS: Hypokalemia, Chronic diarrhea Nausea & vomiting Qualifiers: Vomiting type: bilious vomiting Qualified Code(s): R11.14 - Bilious vomiting Disposition: ADMITTED INPATIENT 09 Certified Medical Emergency: Emergent Condition: Stable Referrals and Follow-Ups: None,PCP [Primary Care Provider] - - Critical Care Note This patient required my direct & personal management of CC.: No Attestation - Physician/ LUCITA Attestation Patient care was provided by Advanced Practice Provider:: Yes Advanced Practice Provider:: Shania Torres Advanced Practice Provider documentation review:: The Mid-level provider documentation, treatment plan and medical decision making was reviewed by the physician who agrees with all treatment and medical decision making by the MLP. The physician spent face to face time with patient:: No Advanced Practice Provider documentation review:: Supervising physician onsite and consulted in the evaluation and care of this patient. The physician did not have a face to face encounter with the patient.
[2017-06-30 14:16] LABS: MANUAL DIFF NEEDED? NO
[2017-06-30 14:44] LABS: BASO% 0.8 % (0.0-0.8); EOS# 0.03 X1000 (0.0-0.7); EOS% 0.8 % (0.0-10.0); HEMATOCRIT 39.4 % (37.0-47.0); HEMOGLOBIN 13.8 g/dL (12.0-16.0); LYMPH# 1.65 X1000 (1.2-3.4); MCH 31.4 PG (27-31); MCV 89.7 FL (81-99); MONO# 0.28 X1000 (0.11-0.59); MONO% 7.3 % (1.7-9.3); MPV 8.9 FL (7.4-10.4); NEUT% 48.1 % (42.2-75.2); PLT 345 X1000 (130-400); RBC 4.39 XMIL (4.2-5.4)
[2017-06-30 14:51] LABS: URINE CULTURE NEEDED? NO; URINE MICRO REVIEW NEEDED? NO; URINE SOURCE CLEAN CATCH
[2017-06-30 15:02] LABS: BILIRUBIN URINE NEGATIVE (NEGATIVE); BLOOD URINE NEGATIVE (NEGATIVE); COLOR YELLOW; GLUCOSE URINE NEGATIVE (NEGATIVE); LEUKOCYTES URINE NEGATIVE (NEGATIVE); NITRITE URINE NEGATIVE (NEGATIVE); PH URINE 8.5; PROTEIN URINE 30 mg/dL (NEGATIVE); SP GRAVITY URINE 1.009; TURBIDITY URINE CLEAR (CLEAR); UROBILINOGEN URINE NORMAL (NORMAL)
[2017-06-30 15:03] LABS: UR EPITHELIAL CELLS <10 /HPF (<10); URINE BACTERIA NEGATIVE /HPF; URINE RBC <10 /HPF (<10); URINE WBC <10 /HPF (<10)
[2017-06-30 15:09] LABS: AGAP 21; ALBUMIN 4.3 g/dL (3.5-5.0); ALKALINE PHOSPHATASE 80 U/L (32-104); AMYLASE 150 U/L (20-200); BUN 5 mg/dL (8-22); CALCIUM 9.4 mg/dL (8.8-10.2); CHLORIDE 89 mmol/L (98-107); COSMO 270; GOT 23 U/L (10-30); GPT 11 U/L (10-36); LIPASE 28 U/L (13-60); POTASSIUM 2.6 mmol/L (3.5-5.1); SODIUM 137 mmol/L (136-145); TCO2 27 mmol/L (25-35); TOTAL BILIRUBIN 0.81 mg/dL (0.20-1.00); TOTAL PROTEIN 7.1 g/dL (6.3-8.3)
[2017-06-30] MEDS ORDERED: POTASSIUM CHLORIDE 20% LIQUID PO ONE (15:43)
[2017-06-30 17:41] LABS: UR AMPHETAMINES QUAL NONE DETECTED (NONE DETECT); UR BARBITUATES QUAL NONE DETECTED (NONE DETECT); UR BENZODIAZEPIN QUAL PRESUMPTIVE POSITIVE (NONE DETECT); UR CANNABINOIDS QUAL NONE DETECTED (NONE DETECT); UR COCAINE QUAL NONE DETECTED (NONE DETECT); UR METHADONE QUAL NONE DETECTED (NONE DETECT); UR OPIATES QUAL NONE DETECTED (NONE DETECT); UR OXYCODONE QUAL NONE DETECTED (NONE DETECT); UR PCP QUAL NONE DETECTED (NONE DETECT)
[2017-06-30 17:49] LABS: MAGNESIUM 1.8 mg/dL (1.5-2.7)
--- NOTE | 2017-06-30 17:59 | HISTORY AND PHYSICAL ---
CHIEF COMPLAINT: Abdominal pain, nausea, vomiting and diarrhea. HISTORY OF PRESENT ILLNESS: Mrs. Lynn is a 22-year-old female well known to our service. She has multiple admissions for intractable diarrhea coupled with profound electrolyte abnormalities. She was last discharged from our service on 06/15/2017. She returns today with 3 days of lower abdominal cramping along with multiple stools of diarrhea and occasional vomiting. These symptoms are similar to her previous admissions. She denies any use of laxatives or diuretics. She denies any fevers or chills. She denies any hematochezia, hemoptysis, hematemesis or melena. She reports that any time she eats she almost immediately has to use the bathroom. She came to the ER today and was found to have a potassium of 2.6 coupled with a chloride of 89, otherwise laboratory data is largely unremarkable. She is going to be admitted for observation status for diarrhea hypokalemia. PAST MEDICAL HISTORY: 1. Recurrent admissions for diarrhea and hypokalemia. 2. Anxiety. 3. Questionable alcohol dependence. 4. 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 5. History of eating disorder. SURGICAL HISTORY: She has had a tonsillectomy. SOCIAL HISTORY: Patient is from [place], apparently she is moving back to [place] on the of this month. She reports drinking beer every day. Amount is variable anywhere from 3-6 beers. She denies illicit drug use. She denies any nicotine use. She denies any laxative or diuretic abuse. Father is at the bedside. FAMILY HISTORY: Noncontributory. HOME MEDICATIONS: Xanax 0.5 mg b.i.d., Zofran 4 mg p.o. q.6 as needed, KCl 40 mEq daily. ALLERGIES: Penicillin. REVIEW OF SYSTEMS: Fourteen-point review of systems obtained found to be negative with the exception of the HPI. PHYSICAL EXAMINATION: VITAL SIGNS: Blood pressure is 91/56, heart rate 48, respiratory 18, O2 saturation 100% on room air, temperature is 97.7 degrees. GENERAL: This is a thin and frail appearing 22-year-old female lying in hospital bed in no acute distress. NEUROLOGIC: She is awake, alert, oriented without focal deficits. HEENT: Head atraumatic and normocephalic. Her pupils are equal, round, reactive to light. Oral mucosa is a bit dry. Trachea is midline. There is no JVD. CHEST: Clear to auscultation bilaterally. CV: Regular rate and rhythm. S1-S2 is noted. No murmurs. GI: Right upper quadrant tenderness to palpation. Belly is soft with normoactive bowel sounds. EXTREMITIES: Without edema, clubbing or cyanosis. Pulses palpable bilaterally. DIAGNOSTIC DATA: WBC 3.84, hemoglobin 13.8, hematocrit 39.4, platelet count 345,000. Sodium 137, potassium 2.6, chloride 89, CO2 27, anion gap 21, BUN 5, creatinine 1, glucose 80, calcium 9.4, bilirubin 0.81, AST 23, ALT 11, alkaline phosphatase 80, albumin 4.3, lipase 28. UA is negative. test is negative. There is 30 a protein in her urine. ASSESSMENT AND PLAN: 1. Recurrent nausea, vomiting and diarrhea: Will continue fluids, antiemetics and liquid diet. If she has any more diarrhea will send it for stool studies. 2. Persistent hypokalemia: Likely secondary to her diarrhea. However she does have a random potassium in the urine of 83. We are also going to check all her other important urine electrolytes, possibly consider renal consultation. We have checked diuretic abuse panel in the past and it was negative, we may have to look into more exotic disease processes. 3. Questionable alcohol dependence: We have discussed with the patient that drinking any amount of alcohol at this time given her profound abnormalities of electrolytes along with diarrhea and vomiting is not recommended. She verbalizes understanding, we have told her that if she needs help we can offer her literature on addiction. 4. Deep vein thrombosis prophylaxis will be provided with Lovenox. Will check labs in the morning. Further recommendations to follow. Dictated by DO Tovar for Ct Kat MD cc: DO Tovar MD The patient was seen and examined by me. All laboratory data and imaging was reviewed by me. The plan of care was discussed with the patient at the bedside. [facility]
[2017-06-30] MEDS ORDERED: ZOFRAN IV PRN (19:00)
[2017-06-30] MEDS ORDERED: LOVENOX SUBQ SCH (19:00)
[2017-06-30] MEDS ORDERED: SODIUM CHLORIDE 0.9% INJ SCH (19:00)
[2017-06-30] MEDS ORDERED: NEUTRA-PHOS PO ONE (19:00)
[2017-06-30] MEDS ORDERED: NEXIUM IV SCH (19:00)
--- NOTE | 2017-06-30 19:32 | Diag Imaging Result Doc PS360 ---
EXAM: FLAT/UPRIGHT ABD/1 VIEW CHEST HISTORY: abd pain/hypokalemia TECHNIQUE: Flat and upright abdomen with PA chest COMMENT: There is no evidence of bowel obstruction. No evidence of organomegaly mass free air or abnormal calcifications is present. CHEST: There is no evidence of acute cardiac or pulmonary disease. There are no previous studies. IMPRESSION: No evidence of acute disease. Electronically signed by Scooby Kumari 06/30/2017 7:30 PM
[2017-06-30 20:35] LABS: UR CREAT RANDOM 119.2 mg/dL (11-20)
[2017-07-01 06:30] LABS: HEMATOCRIT 36.2 % (37.0-47.0); HEMOGLOBIN 12.4 g/dL (12.0-16.0); MCH 31.7 PG (27-31); MCHC 34.3 g/dL (33-37); MCV 92.6 FL (81-99); MPV 8.8 FL (7.4-10.4); RBC 3.91 XMIL (4.2-5.4)
[2017-07-01 06:45] LABS: AGAP 10; BUN 5 mg/dL (8-22); CHLORIDE 97 mmol/L (98-107); COSMO 272; MAGNESIUM 1.8 mg/dL (1.5-2.7); POTASSIUM 3.4 mmol/L (3.5-5.1); SODIUM 138 mmol/L (136-145); TCO2 31 mmol/L (25-35)
[2017-07-01] MEDS ORDERED: KLOR-CON PO ONE (06:47)
[2017-07-01 11:06] VITALS: BP 91/48
--- NOTE | 2017-07-08 13:39 | DISCHARGE SUMMARY ---
ADMISSION DATE: 06/30/2017 DISCHARGE DATE: 07/01/2017 FINAL DISCHARGE DIAGNOSES: 1. Recurrent hypokalemia. 2. Chronic diarrhea. 3. Anxiety disorder. 4. History of laxative and diuretic abuse. 5. History of eating disorder. HOSPITAL COURSE: Ms. Lynn is a 22-year-old female with a history of laxative and diuretic abuse, and anxiety disorder, as well as chronic diarrhea who presented to the ER with a chief complaint of abdominal pain, nausea, vomiting, and diarrhea. On admission, the patient was noted to have a potassium of 2.6. The patient was admitted to the Hospitalist Service and potassium replacement was initiated. The patient was last admitted to the hospitalist service on 06/13/2017, at which time she had an extensive workup for the etiology of the patient's persistent hypokalemia. Workup was noted to be unremarkable. Back in April of 2017, the patient underwent a colonoscopy with biopsy for workup of the chronic diarrhea. The pathology from that endoscopy revealed mild chronic inflammation. The patient continued to improve clinically and was cleared for discharge home on 07/01/2017. DISCHARGE MEDICATIONS: 1. Xanax 0.5 mg p.o. twice a day. 2. KCl 40 mEq oral daily. 3. Zofran ODT 4 mg every 6 hours p.r.n. for nausea. DISCHARGE INSTRUCTIONS: The patient has been advised to follow up with a primary care physician in 1-2 weeks. cc: Ct Kat MD
== END 2017-07-01 15:14 | disposition home or self-care (01) ==
LOC: ED 12:59 → 4N 12:59
PROVIDERS: ATTEND Internal Medicine